=== PATIENT | female | born 1955 | race Caucasian/White ===

== ENCOUNTER → 2016-07-01 | Outpatient (CLI) | payer OTHER, MEDICAID | LOC: BHFA 13:30 | PROVIDERS: ATTEND Internal Medicine Cardiovascular Disease | DX: Z51.11 Encounter for antineoplastic chemotherapy (principal) ==

== ENCOUNTER 2016-07-25 15:16 | Inpatient (IN) | payer OTHER, MEDICAID ==
--- NOTE | 2016-07-25 16:00 | EDPHY ---
H & P Stated Complaint: Fever, ST, SOB, Cancer patient on chemo. Time Seen by Provider: 07/25/16 15:44 HPI/ROS: CHIEF COMPLAINT: Fever, cough, laryngitis in a patient with metastatic cancer HISTORY OF PRESENT ILLNESS: Patient presents to the ED with 2 days of fever, cough, sore throat and laryngitis. The patient has a history of metastatic breast cancer. The patient had chemotherapy within the past week. She has been around a grandchild who is sick with an upper respiratory infection. Patient developed symptoms of fever over the past 24 hours. She denies vomiting or diarrhea. She has no complaints of abdominal pain or rash. The patient does report flu-like symptoms with myalgias and arthralgias. REVIEW OF SYSTEMS: A comprehensive 10 point review of systems is otherwise negative aside from elements mentioned in the history of present illness. Source: Patient Exam Limitations: No limitations - Personal History Current Tetanus/Diphtheria Vaccine: Unsure Current Tetanus Diphtheria and Acellular Pertussis (TDAP): Unsure - Medical/Surgical History Hx Asthma: No Hx Chronic Respiratory Disease: No Hx Diabetes: No Hx Cardiac Disease: No Hx Renal Disease: No Hx Cirrhosis: No Hx Alcoholism: No Hx HIV/AIDS: No Hx Splenectomy or Spleen Trauma: No Other PMH: breast ca metastsis chest and throat, rectal ca, graves disease, QUINTIN , on chemo - Social History Smoking Status: Former smoker - Physical Exam Exam: General Appearance: Alert, no distress Eyes: Pupils equal and round no pallor or injection ENT, Mouth: Mucous membranes moist Respiratory: There are no retractions, lungs are clear to auscultation Cardiovascular: Tachycardic, no rubs murmurs or gallops Gastrointestinal: Abdomen is soft and nontender, no masses, bowel sounds normal Neurological: A&O, normal motor function, normal sensory exam, normal cranial nerves Skin: Port on anterior chest wall without surrounding erythema Musculoskeletal: Neck is supple nontender Extremities: symmetrical, full range of motion Constitutional: Initial Vital Signs Temperature (C) 39.2 C H 07/25/16 15:24 Heart Rate 141 H 07/25/16 15:24 Respiratory Rate 20 07/25/16 15:24 Blood Pressure 118/86 H 07/25/16 15:24 O2 Sat (%) 83 L 07/25/16 15:24 O2 Delivery Mode Room Air O2 (L/minute) 3 Allergies/Adverse Reactions: adhesive Allergy (Verified 07/25/16 15:32) tomato Allergy (Verified 07/25/16 15:32) Home Medications: Medication Instructions Recorded Dexamethasone [Decadron 4 MG (*)] 8 mg PO BID 04/07/16 FLUoxetine [Prozac 20 MG (*)] 40 mg PO DAILY 04/07/16 Fluticasone Nasal [Flonase Nasal 1 sprays NASAL BID 04/07/16 [place] (RX)] Herbals/Supplements -Info Only 1 ea PO DAILY 04/07/16 Hydrocodone/Acetaminophen [[place] 1 each PO Q4HRS PRN 04/07/16 5/325 (*)] LORazepam [Ativan (*)] 0.5 - 1 mg PO HS PRN 04/07/16 Multivitamin with Minerals 1 each PO DAILY 04/07/16 [Multiple Vitamin] Potassium Cl [Klor-Con 20 meq (*)] 20 meq PO DAILY 04/07/16 Pravastatin Sodium 10 mg PO HS 04/07/16 Albuterol [Proventil Inhaler HFA 2 puffs IH Q6HRS PRN 07/25/16 (*)] Docusate Sodium [Colace 100 MG (*)] 100 mg PO BID PRN 07/25/16 Levothyroxine [Synthroid 112 mcg 112 mcg PO DAILY06 07/25/16 (*)] Montelukast Sodium [Singulair 10 10 mg PO DAILY@1800 07/25/16 mg (*)] Prochlorperazine Maleate 10 mg PO Q6HRS PRN 07/25/16 [Compazine 10mg (*)] Propranolol HCl [Inderal 10mg (*)] 5 mg PO DAILY 07/25/16 Sennosides/Docusate Sodium 1 each PO DAILY 07/25/16 [Senna-S Tablet] Tiotropium Inhaler [Spiriva 1 inh IH DAILY 07/25/16 Inhaler] Urea 40% [Urea Cream (*)] 1 amla TP DAILY 07/25/16 traMADol [Ultram 50 mg (*)] 100 mg PO Q4HRS 07/25/16 Medical Decision Making - Diagnostics Imaging: Imaging Impressions Chest X-Ray 07/25/16 15:54 Impression: Bilateral infiltrates, and small bilateral pleural effusions. Images reviewed by myself and discussed with radiologist Dr. Garcia. ED Course/Re-evaluation: The patient presents to emergency department with neutropenia, SIRS and pneumonia. The patient does not have evidence of end-organ dysfunction. The patient's initial lactate is reassuring. The patient had blood cultures x2 in the ED. The patient will be started on vancomycin and cefepime. Re-examination at 5:00 p.m.: Blood pressure 111/70, no acute distress. Patient informed of diagnosis of pneumonia plan for admission for IV antibiotics. Consultation is made with Dr. Sincere Hall from the hospitalist service. The patient will be admitted to a medical-surgical bed this evening. The patient does not currently have severe sepsis but has received blood cultures x2, broad-spectrum antibiotics and a venous lactate screening. She has no hypotension requiring fluid bolus. The patient did received 2 L of normal saline for clinical dehydration. Differential Diagnosis: Differential diagnosis considered includes neutropenic fever, pneumonia, sepsis , severe sepsis, septic shock - Data Points Laboratory Results: Laboratory Results 07/25/16 16:05 07/25/16 16:05 07/25/16 07/25/16 07/25/16 16:30 16:05 16:05 WBC 1.12 10^3/uL L 10^3/uL (3.80-9.50) RBC 3.74 10^6/uL L 10^6/uL (4.18-5.33) Hgb 11.2 g/dL L g/dL (12.6-16.3) Hct 32.9 % L % (38.0-47.0) MCV 88.0 fL fL (81.5-99.8) MCH 29.9 pg pg (27.9-34.1) MCHC 34.0 g/dL g/dL (32.4-36.7) RDW 17.3 % H % (11.5-15.2) Plt Count 343 10^3/uL 10^3/uL (150-400) MPV 9.4 fL fL (8.7-11.7) Neut % (Auto) Not Reported Lymph % (Auto) Not Reported [place] % (Auto) Not Reported Eos % (Auto) Not Reported Baso % (Auto) Not Reported Nucleat RBC Rel Count 0.0 % % (0.0-0.2) Absolute Neuts (auto) Not Reported Absolute Lymphs (auto) Not Reported Absolute Monos (auto) Not Reported Absolute Eos (auto) Not Reported Absolute Basos (auto) Not Reported Absolute Nucleated RBC 0.00 10^3/uL 10^3/uL (0-0.01) Immature Gran % Not Reported Immature Gran # Not Reported Platelet Estimate Pending VBG Lactic Acid Sodium 130 mEq/L L mEq/L (134-144) Potassium 3.8 mEq/L mEq/L (3.5-5.2) Chloride 97 mEq/L mEq/L (97-110) Carbon Dioxide 25 mEq/l mEq/l (22-31) Anion Gap 8 mEq/L mEq/L (8-16) BUN 5 mg/dL L mg/dL (7-23) Creatinine 0.5 mg/dL L mg/dL (0.6-1.0) Estimated GFR > 60 Glucose 106 mg/dL H mg/dL (70-100) Calcium 8.4 mg/dL L mg/dL (8.5-10.4) Influenza A & B (PCR) Pending 07/25/16 16:05 WBC RBC Hgb Hct MCV MCH MCHC RDW Plt Count MPV Neut % (Auto) Lymph % (Auto) [place] % (Auto) Eos % (Auto) Baso % (Auto) Nucleat RBC Rel Count Absolute Neuts (auto) Absolute Lymphs (auto) Absolute Monos (auto) Absolute Eos (auto) Absolute Basos (auto) Absolute Nucleated RBC Immature Gran % Immature Gran # Platelet Estimate VBG Lactic Acid 1.2 mmol/L mmol/L (0.7-2.1) Sodium Potassium Chloride Carbon Dioxide Anion Gap BUN Creatinine Estimated GFR Glucose Calcium Influenza A & B (PCR) Departure - Departure Disposition: [facility] Inpatient Acute Clinical Impression: Neutropenic fever, Pneumonia, Sepsis Condition: Fair
[2016-07-25 16:18] LABS: ADD MORPH? NO; FRAGMENT RBC FLAG 20 (0-99); HEMATOCRIT 32.9 % (38.0-47.0); HEMOGLOBIN 11.2 g/dL (12.6-16.3); LIPEMIA HEMOLYSIS FLAG 90 (0-99); MEAN CELL HEMOGLOBIN 29.9 pg (27.9-34.1); MEAN PLATELET VOLUME 9.4 fL (8.7-11.7); PLATELET CLUMPS FLAG 0 (0-99); PLATELET COUNT 343 10^3/uL (150-400); RED BLOOD CELL COUNT 3.74 10^6/uL (4.18-5.33); RED CELL DISTRIBUTION WIDTH 17.3 % (11.5-15.2)
[2016-07-25] MEDS ORDERED: NS 1,000 ML IV ONE ×3 (16:33→19:57)
[2016-07-25 16:36] LABS: ANION GAP 8 mEq/L (8-16); CALCIUM 8.4 mg/dL (8.5-10.4); CARBON DIOXIDE 25 mEq/l (22-31); CHLORIDE 97 mEq/L (97-110); CREATININE 0.5 mg/dL (0.6-1.0); GLOMERULAR FILTRATION RATE > 60; GLUCOSE 106 mg/dL (70-100); POTASSIUM 3.8 mEq/L (3.5-5.2); SODIUM 130 mEq/L (134-144)
[2016-07-25 16:44] LABS: ATYPICAL LYMPHOCYTE FLAG 100 (0-99); LEFT SHIFT FLG 120 (0-99)
[2016-07-25 16:45] LABS: ADD DIFF? YES; ADD SCAN? NO
[2016-07-25] MEDS ORDERED: CEFEPIME HCL 2 GM in D5W 100 ML IV ONE (16:49)
[2016-07-25] MEDS ORDERED: VANCOMYCIN HCL/NORMAL SALINE 250 ML IV ONE (16:50)
[2016-07-25] MEDS ORDERED: VANCOMYCIN 1 GM/NS 250 ML BAG IV ONE ×2 (17:33→17:35)
[2016-07-25 17:46] LABS: GIANT PLATELETS PRESENT; HYPOCHROMIA 1+; MACROCYTES 1+; MICROCYTES 1+; PLATELET ESTIMATE ADEQUATE (ADEQ)
[2016-07-25] MEDS ORDERED: ALBUTEROL 3 ML DEYVIAL ONE (19:15)
[2016-07-25] MEDS ORDERED: IPRATROPIUM/ALBUTEROL 3 ML DEYVIAL ONE (19:15)
[2016-07-25] MEDS ORDERED: ONDANSETRON 4 MG/2 ML VIAL IVP PRN (19:57)
[2016-07-25] MEDS ORDERED: ALBUTEROL 3 ML DEYVIAL IH PRN (19:57)
[2016-07-25] MEDS ORDERED: ACETAMINOPHEN 325 MG TAB PO PRN (19:57)
[2016-07-25] MEDS ORDERED: PROCHLORPERAZINE MALEATE 10 MG TAB PO PRN (20:00)
[2016-07-25] MEDS ORDERED: DOCUSATE SODIUM 100 MG CAP PO PRN (20:00)
[2016-07-25] MEDS: DEXAMETHASONE 4 MG TAB PO SCH (20:29)
[2016-07-25] MEDS: HYDROCODONE/APAP 5/325 TAB PO PRN (20:31)
[2016-07-25] MEDS: LORazepam 0.5 MG TAB PO PRN (20:32)
[2016-07-25] MEDS: FLUTICASONE NASAL 120 SPRAYS/16 GM MDI EACHNARE SCH (21:04)
[2016-07-25] MEDS: CEFEPIME HCL 1 GM in D5W 50 ML IV SCH (21:07)
--- NOTE | 2016-07-25 21:09 | PDGENHP ---
History and Physical History and Physical: HISTORY AND PHYSICAL CC: Weak cough fever short of breath HISTORY: This patient with known metastatic breast cancer on chemotherapy comes in with gradually worsening respiratory symptoms for a week now with fever and weakness. She has been coughing and short of breath no chest pain. The cough is nonproductive. She has had rigors and sweats at home. Her last chemotherapy dose was 5 days ago for her breast cancer. She has no nausea or vomiting but has very poor appetite. There is no abdominal pain no headache no neck stiffness or neurologic symptoms. She does have a former smoking history and some history of COPD. 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 Quit smoking some years back Does desire no cor Dr. Manish Lantigua is her medical oncologist MEDICATIONS: The patients list has been reconciled by our clinical pharmacist in the EMR. I have reviewed the list and ordered appropriate medicines. PHYSICAL EXAMINATION: Vital Signs: Some tachycardia and tachypnea, temperature 38.1degrees, blood pressure is good Regional Engineer: Sinus rhythm in the ER Examination: General: alert, oriented, good mentation, looks very exhausted mildly uncomfortable Skin: warm, dry, good color, no rash HEENT: normal Neck: no mass or jvd Resps: Mildly labored Lungs: Some minor rales at bases with overall decreased breath sounds Heart: regular, no murmur Abdomen: soft, nondistended, nontender, +BS, no mass; colostomy in good condition left lower quadrant with appliances appropriately attached Upper Extremities: normal Lower Extremities: no edema, warm No Bleeding or bruising Neurologic: normal speech/language, 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, no focal weakness IV site: looks normal LABORATORY DATA: Total white blood cell count 1.4 with neutrophils less than 500 otherwise stable laboratory RADIOLOGY STUDIES: Chest x-ray in the ER, my personal review of images and interpretation: Bilateral pulmonary infiltrates most prominent in right upper lobe ASSESSMENT: -acute neutropenic fever -acute respiratory failure -Community-acquired pneumonia in an immunocompromised host -neutropenia from recent chemotherapy -metastatic breast cancer with recurrence -history of rectal carcinoma with ostomy in place left lower quadrant of abdomen PLANS: -inpatient admission to oncology unit with severe acute illness requiring greater than 48 hours inpatient care -cultures drawn in the ER and antibiotics started with appropriate coverage for her neutropenic fever and pneumonia -continue aggressive hydration -bronchodilators steroids if necessary -DVT prophylaxis -Oncology consultation I have reviewed the patient's case in detail with Dr. Miguelito Nuñez I have reviewed the patient's past medical records as part of this assessment, including clinic records
[2016-07-25] MEDS: NS 1,000 ML IV SCH (22:06)
[2016-07-25] MEDS: traMADol 50 MG TAB PO SCH (22:06)
[2016-07-25] MEDS: IPRATROPIUM/ALBUTEROL 3 ML DEYVIAL IH SCH (22:09)
[2016-07-25] MEDS: ZOLPIDEM TARTRATE 5 MG TAB PO PRN (23:14)
[2016-07-25] MEDS: PRAVASTATIN SODIUM 10 MG TAB PO SCH (23:14)
[2016-07-26] MEDS: traMADol 50 MG TAB PO SCH ×6 (01:48→22:46)
[2016-07-26] MEDS: CEFEPIME HCL 1 GM in D5W 50 ML IV SCH (04:40)
[2016-07-26] MEDS: NS 1,000 ML IV SCH ×2 (04:42→13:39)
[2016-07-26] MEDS: IPRATROPIUM/ALBUTEROL 3 ML DEYVIAL IH SCH ×4 (05:59→20:16)
[2016-07-26] MEDS: LEVOTHYROXINE 112 MCG TAB PO SCH (06:07)
[2016-07-26] MEDS: VANCOMYCIN HCL/NORMAL SALINE 250 ML IV SCH ×2 (06:07→18:18)
[2016-07-26 06:21] LABS: ADD DIFF? YES; ADD MORPH? NO; ATYPICAL LYMPHOCYTE FLAG 0 (0-99); FRAGMENT RBC FLAG 20 (0-99); HEMOGLOBIN 12.4 g/dL (12.6-16.3); LIPEMIA HEMOLYSIS FLAG 80 (0-99); MEAN CELL HEMOGLOBIN 29.2 pg (27.9-34.1); MEAN CELL HEMOGLOBIN CONCENTR. 33.5 g/dL (32.4-36.7); MEAN CELL VOLUME 87.1 fL (81.5-99.8); MEAN PLATELET VOLUME 9.2 fL (8.7-11.7); PLATELET CLUMPS FLAG 0 (0-99); PLATELET COUNT 270 10^3/uL (150-400); RED BLOOD CELL COUNT 4.25 10^6/uL (4.18-5.33); RED CELL DISTRIBUTION WIDTH 17.4 % (11.5-15.2)
[2016-07-26 06:22] LABS: LEFT SHIFT FLG 260 (0-99)
[2016-07-26 06:23] LABS: ADD SCAN? NO
[2016-07-26 06:49] LABS: PLATELET ESTIMATE ADEQUATE (ADEQ)
[2016-07-26 06:50] LABS: HYPOCHROMIA 1+; POLYCHROMASIA 1+
[2016-07-26 06:53] LABS: ALANINE AMINOTRANSFERASE 30 IU/L (9-52); ALBUMIN 2.2 g/dL (3.5-5.0); ALKALINE PHOSPHATASE 47 IU/L (38-126); ANION GAP 8 mEq/L (8-16); ASPARTATE AMINOTRANSFERASE 18 IU/L (14-46); BILIRUBIN,TOTAL 0.5 mg/dL (0.1-1.4); CARBON DIOXIDE 22 mEq/l (22-31); CHLORIDE 105 mEq/L (97-110); CREATININE 0.5 mg/dL (0.6-1.0); GLOMERULAR FILTRATION RATE > 60; GLUCOSE 131 mg/dL (70-100); POTASSIUM 3.7 mEq/L (3.5-5.2); SODIUM 135 mEq/L (134-144); TOTAL PROTEIN 4.4 g/dL (6.3-8.2)
[2016-07-26] MEDS ORDERED: NON-FORMULARY NEW DRUG (Multivitamin With Minerals [Multiple Vitamin] 1 EACH) PO SCH (09:00)
[2016-07-26] MEDS: MULTIVITAMINS W-MINERALS 1 EACH TAB PO SCH (09:09)
[2016-07-26] MEDS: POTASSIUM CL 20 MEQ TAB PO SCH (09:09)
[2016-07-26] MEDS: ENOXAPARIN 40 MG/0.4 ML SYR SC SCH (09:10)
[2016-07-26] MEDS: DEXAMETHASONE 4 MG TAB PO SCH ×2 (09:10→20:56)
[2016-07-26] MEDS: FLUoxetine 20 MG CAP PO SCH (09:10)
[2016-07-26] MEDS: FLUTICASONE NASAL 120 SPRAYS/16 GM MDI EACHNARE SCH ×2 (09:16→20:55)
[2016-07-26] MEDS: PROPRANOLOL HCL 10 MG TAB PO SCH (09:16)
[2016-07-26] MEDS: SENNOSIDES/DOCUSATE SODIUM TAB PO SCH (09:17)
[2016-07-26] MEDS ORDERED: FUROSEMIDE 20 MG/2 ML VIAL IVP ONE (13:46)
[2016-07-26] MEDS: UREA 40% CREAM TP SCH (13:50)
--- NOTE | 2016-07-26 14:28 | HOSPPROG ---
Hospitalist Progress Note Assessment/Plan: # Sepsis- neutropenia and tachycardia on presentation source presumed pulmonary- chest x-ray (personally reviewed and interpreted) a new right-sided infiltrate- - received aggressive fluid resuscitation overnight - continue empiric IV vancomycin and cefepime # acute hypoxic respiratory failure- oxygen saturations 94% on 12 L- saturations have worsened through the afternoon increased crackles and wheezing on examination- suspect 2/2 pneumonia plus some volume overload with her treatment of sepsis - . IVF as patient taking p.o. - Lasix 20 mg IV x1 - continue empiric IV antibiotics for neutropenic pneumonia # acute Gram-negative garo bacteremia- 1 of 4 blood cultures from admission positive- awaiting speciation - continue IV cefepime # neutropenia secondary to chemotherapy- WBC 1.2 - continue aggressive supportive treatment - continue IV vancomycin and cefepime # metastatic breast cancer- oncology consulting and following along # tachycardia- secondary to sepsis and hypovolemia- heart rates improved this afternoon in the 90s from the 130s - holding additional fluids as above and monitor # hypovolemic hyponatremia- sodium normal this morning after fluid resuscitation - follow daily # prophylaxis Lovenox # diet regular # disposition I expect greater than 2 midnights as the patient is presenting neutropenic with sepsis and bacteremia I have discussed the case with Oncology- we will continue broad-spectrum antibiotics and give low-dose Lasix for hypoxia Subjective: short of breath Objective: Vital Signs Temp Pulse Resp BP Pulse Ox 36.8 C 97 18 115/79 90 L 07/26/16 13:11 07/26/16 13:11 07/26/16 13:11 07/26/16 13:11 07/26/16 13:11 Laboratory Results 07/26/16 06:15 07/26/16 06:15 07/25/16 07/26/16 07/27/16 05:59 05:59 05:59 Intake Total 1000 1268 Output Total 20 Balance 980 1268 - Physical Exam Constitutional: chronically ill appearing Eyes: anicteric sclera Ears, Nose, Mouth, Throat: dry mucous membranes Cardiovascular: regular rate and rhythym, tachycardia Respiratory: inspiratory crackles, respiratory distress Gastrointestinal: normoactive bowel sounds Genitourinary: no bladder fullness Skin: warm, normal color Musculoskeletal: No asymmetric calves Neurologic: AAOx3 Psychiatric: depressed Lymph, Heme, Immunologic: no cervical LAD ICD10 Worksheet Patient Problems: Problems Problem Status Onset Neutropenic fever Acute Pneumonia Acute Sepsis Acute
--- NOTE | 2016-07-26 15:04 | GCON ---
[f rep st] CONSULTATION ONCOLOGY INITIAL VISIT REASON FOR VISIT: Metastatic breast cancer. PRIMARY ONCOLOGIST: Dr. Lantigua. HISTORY OF PRESENT ILLNESS: She was initially diagnosed in 1993 with a T2 N0 breast cancer. She de veloped metastatic disease, I believe, in 2010. She was initially treated with hormone therapy, inc luding fulvestrant through early 2014. In fall 2015, she was felt to be hormone refractory and star genesis on capecitabine, She received it but did not tolerate it, so she was switched to docetaxel. She has been on that since March 07 and last week was cycle 5, day 15, for which she is receiving it weekly. I do not believe she has had significant problems related to the chemotherapy. She came in, I believe, through the emergency room with worsening respiratory symptoms for a week wi th associated fever and weakness. Her blood pressure is low and she was a little tachycardic last n ight. She was also found to be neutropenic. She was started on broad-spectrum antibiotics and aggr essively hydrated. Today, she is feeling maybe about the same although the fever has defervesced. She is a little more short of breath and hypoxic. She is hard of hearing and has a soft voice. PAST MEDICAL HISTORY: She has the breast cancer diagnosed 2002. She has a previous rectal cancer t reated with colectomy with a colostomy in place, COPD, Graves disease. SURGICAL HISTORY: Aside from the partial colectomy, she has had a hysterectomy. FAMILY HISTORY: Unremarkable. SOCIAL HISTORY: She is a former smoker, 22-pack year. She is . She lives, I believe, in [facility], and her daughter lives in [place]. REVIEW OF SYSTEMS: Ten-point review of systems performed, pertinent positives in HPI, otherwise neg ative. PHYSICAL EXAMINATION: VITAL SIGNS: On arrival, temperature is 39.2, pulse was 141, blood pressure is 118/86. Currently, her temperature is 36.8, pulse is 97, blood pressure is 115/79. GENERAL: Enedina velasquez is ill appearing but in no distress asking to get catsup for her breakfast. She is mildly tachypn eic. LUNGS: Reveal bilateral rhonchi with some wheezing. CARDIAC: Regular. ABDOMEN: Soft. SKI N: Reveals no rash. NEUROLOGIC: Grossly intact. LABS: On arrival, white count was 1100 with an ANC of about 600. Her ANC today is 750. Hemoglobin is 12.4, platelet count is normal. Chemistries: Albumin is little low at 2.2 but otherwise unrema rkable. She is negative for flu and microbiology is showing gram-negative garo. Chest x-ray last ni ght showed some bilateral infiltrates. IMPRESSION: 1. Febrile neutropenia. 2. Pneumonitis. 3. Metastatic breast cancer. Her last staging studies were about 2 months ago that showed improvem ent osseous metastasis and adenopathy. Her chest at that time, I believe, was relatively unremarkab le. I agree with starting with broad spectrum antibiotics which can be narrowed as the culture returns. If she does not grow Staph then vancomycin would not be necessary to continue on. If she continues to have some pulmonary issues with the changes on chest x-ray, we could get a CT to determine if th is is infectious versus other which could be difficult to tease out. Taxotere has been associated w ith pneumonitis, and if she is not getting better as expected, we could add steroids. We will follo w along with you. I do not recommend starting any growth factor at this time since she seems to be recovering. /[id number]/MODL
[2016-07-26] MEDS: CEFEPIME HCL 2 GM in D5W 100 ML IV SCH ×2 (15:25→22:38)
[2016-07-26] MEDS: MONTELUKAST SODIUM 10 MG TAB PO SCH (18:01)
[2016-07-26] MEDS: PRAVASTATIN SODIUM 10 MG TAB PO SCH (20:56)
[2016-07-27] MEDS ORDERED: FUROSEMIDE 20 MG/2 ML VIAL IVP ONE ×2 (00:12→06:00)
--- NOTE | 2016-07-27 00:15 | HOSPPROG ---
Hospitalist Progress Note Assessment/Plan: x-cover note I was notified by RN of increasing o2 requirement. stat xray ordered and reviewed showing worsening pneumonia with superimposed chf p/ will repeat lasix 20mg iv x1 and consider a repeat dose as indicated Objective: Vital Signs Temp Pulse Resp BP Pulse Ox 36.6 C 107 H 20 120/80 94 07/26/16 22:44 07/26/16 22:44 07/26/16 22:44 07/26/16 22:44 07/26/16 22:44 Laboratory Results 07/26/16 06:15 07/26/16 06:15 07/25/16 07/26/16 07/27/16 05:59 05:59 05:59 Intake Total 1000 1668 Output Total 20 1300 Balance 980 368 ICD10 Worksheet Patient Problems: Problems Problem Status Onset Neutropenic fever Acute Pneumonia Acute Sepsis Acute
[2016-07-27] MEDS: traMADol 50 MG TAB PO SCH ×6 (02:37→20:54)
[2016-07-27 05:14] LABS: ADD MORPH? NO; FRAGMENT RBC FLAG 20 (0-99); HEMATOCRIT 33.7 % (38.0-47.0); HEMOGLOBIN 11.4 g/dL (12.6-16.3); LIPEMIA HEMOLYSIS FLAG 90 (0-99); MEAN CELL HEMOGLOBIN 29.5 pg (27.9-34.1); MEAN CELL HEMOGLOBIN CONCENTR. 33.8 g/dL (32.4-36.7); MEAN CELL VOLUME 87.3 fL (81.5-99.8); MEAN PLATELET VOLUME 9.7 fL (8.7-11.7); PLATELET CLUMPS FLAG 0 (0-99); PLATELET COUNT 357 10^3/uL (150-400); RED BLOOD CELL COUNT 3.86 10^6/uL (4.18-5.33); RED CELL DISTRIBUTION WIDTH 17.2 % (11.5-15.2)
[2016-07-27 05:22] LABS: ATYPICAL LYMPHOCYTE FLAG 140 (0-99); LEFT SHIFT FLG 300 (0-99)
[2016-07-27 05:23] LABS: ADD DIFF? YES; ADD SCAN? NO
[2016-07-27] MEDS: IPRATROPIUM/ALBUTEROL 3 ML DEYVIAL IH SCH ×4 (05:24→21:10)
[2016-07-27] MEDS: CEFEPIME HCL 2 GM in D5W 100 ML IV SCH ×3 (05:53→20:55)
[2016-07-27] MEDS: LEVOTHYROXINE 112 MCG TAB PO SCH (05:53)
[2016-07-27 06:10] LABS: PLATELET ESTIMATE ADEQUATE (ADEQ); TOXIC GRANULATION PRESENT; TOXIC VACUOLIZATION PRESENT
[2016-07-27] MEDS ORDERED: VANCOMYCIN 1.25 GM in D5W 250 ML IV SCH (07:00)
[2016-07-27] MEDS ORDERED: FUROSEMIDE 40 MG/4 ML VIAL IVP ONE ×2 (07:07→10:30)
[2016-07-27] MEDS: VANCOMYCIN HCL/NORMAL SALINE 250 ML IV SCH (07:28)
--- NOTE | 2016-07-27 09:10 | HOSPPROG ---
Hospitalist Progress Note Assessment/Plan: # Sepsis- neutropenia and tachycardia on presentation - with pneumonia and pseudomonas bacteremia chest x-ray 0020 (personally reviewed and interpreted) right-sided infiltrate-volume overload - received aggressive fluid resuscitation on admit - continue empiric IV vancomycin and cefepime - (will discuss dc of vancomycin with ID) # acute hypoxic respiratory failure- oxygen saturations worsened overnight 94 % on 12 L-> 25L suspect worsening overnight 2/2 volume - - IVF dc's yesterday 1300 - repeat Lasix 20 mg IV x1 overnight - will give lasix 40mg this am - continue empiric IV antibiotics for neutropenic pneumonia # acute Pseudomonas bacteremia- 1 of 4 blood cultures from admission positive - - continue IV cefepime # neutropenia secondary to chemotherapy- WBC 1.2-> 3.07 - continue aggressive supportive treatment - continue IV abx # metastatic breast cancer- oncology consulting and following along # tachycardia- secondary to sepsis and AHRF- heart rates improved from admit - remain in 100's - holding additional fluids as above and monitor # hypovolemic hyponatremia- sodium normal 135 after fluid resuscitation - follow daily # prophylaxis Lovenox # diet regular # disposition I expect greater than 2 midnights as the patient is presenting neutropenic with sepsis and bacteremia I have discussed the case with ID - they will consult and help with tailoring of antibiotics Subjective: sob Objective: Vital Signs Temp Pulse Resp BP Pulse Ox 36.6 C 113 H 18 135/88 H 95 07/27/16 07:22 07/27/16 07:22 07/27/16 07:22 07/27/16 07:22 07/27/16 07:22 Laboratory Results 07/27/16 05:00 07/26/16 06:15 07/26/16 07/27/16 07/28/16 05:59 05:59 05:59 Intake Total 1000 2761 Output Total 20 1900 900 Balance 980 861 -900 - Physical Exam Constitutional: chronically ill appearing Eyes: anicteric sclera Ears, Nose, Mouth, Throat: dry mucous membranes Cardiovascular: regular rate and rhythym, tachycardia Respiratory: expiratory wheeze, inspiratory crackles, respiratory distress Gastrointestinal: normoactive bowel sounds Genitourinary: no bladder fullness Skin: warm, normal color Musculoskeletal: No asymmetric calves Neurologic: AAOx3 Psychiatric: depressed Lymph, Heme, Immunologic: no cervical LAD ICD10 Worksheet Patient Problems: Problems Problem Status Onset Neutropenic fever Acute Pneumonia Acute Sepsis Acute
[2016-07-27] MEDS: DEXAMETHASONE 4 MG TAB PO SCH ×2 (10:28→20:54)
[2016-07-27] MEDS: POTASSIUM CL 20 MEQ TAB PO SCH (10:29)
[2016-07-27] MEDS: MULTIVITAMINS W-MINERALS 1 EACH TAB PO SCH (10:30)
[2016-07-27] MEDS: FLUoxetine 20 MG CAP PO SCH (10:30)
[2016-07-27] MEDS: SENNOSIDES/DOCUSATE SODIUM TAB PO SCH (10:31)
[2016-07-27] MEDS: ENOXAPARIN 40 MG/0.4 ML SYR SC SCH (10:31)
[2016-07-27] MEDS: FLUTICASONE NASAL 120 SPRAYS/16 GM MDI EACHNARE SCH ×2 (10:32→21:30)
[2016-07-27] MEDS: PROPRANOLOL HCL 10 MG TAB PO SCH (10:34)
--- NOTE | 2016-07-27 11:11 | GCON ---
[f rep st] CONSULTATION INPATIENT INFECTIOUS DISEASE CONSULTATION REFERRING PHYSICIAN: Dana Carpenter REASON FOR REFERRAL: Neutropenic fever, Pseudomonas bacteremia. HISTORY OF PRESENT ILLNESS: Patient is a 60-year-old female who was admitted to [facility] through the emergency room on 07/25/2016. The patient has underlying late-stage breast cancer for over a decade. She is actively on chemotherapy. Her chemotherapy has resulted in neutropenia. Patient had been experiencing at home fevers and rigors with shortness of breath. She was admitte d and started empirically on vancomycin and cefepime. Blood cultures then grew gram negative rods, which PCR'd out as Pseudomonas aeruginosa. Currently, she is resting comfortably in her hospital ro . She is sitting up in a chair beside her bed. She is trying to have a little bit of breakfast. She states she feels better. She has not had a fever since her admission. She denies any shortnes s of breath. Denies any abdominal pain. PAST MEDICAL HISTORY: 1. Breast cancer stage IV. Diagnosed in 2002. She is currently receiving chemotherapy. Last cycl e 5 days prior to admission. 2. Rectal cancer status post partial colectomy. Currently has an ostomy. 3. COPD, former smoker. 4. Graves disease. PAST SURGICAL HISTORY: 1. Status post partial colectomy with colostomy placement. 2. Status post hysterectomy. ANTIBIOTICS: 1. Vancomycin. 2. Cefepime. ALLERGIES: Patient is allergic to adhesives and tomatoes. SOCIAL HISTORY: The patient lives in [place]. She has a supportive family. Her daughter is quit e involved. She has a past history of tobacco use. No significant alcohol or drug use. FAMILY HISTORY: Reviewed, but noncontributory. REVIEW OF SYSTEMS: Other than that detailed above in history of present illness, comprehensive 10-s ystem review is negative. PHYSICAL EXAMINATION: VITAL SIGNS: Temperature maximum is 37.1. Temperature current is 36.6. Hea rt rate is 113, respiratory rate is 18, blood pressure is 135/88. GENERAL: The patient is a well-f ormed, well-nourished, chronically ill-appearing older female in no acute distress. She is not toxi c in appearance. She is alert and oriented x3. She has a pleasant demeanor. HEENT: Normocephalic for age. Atraumatic. No scleral icterus. No oral lesion. No drainage from the nares. The patie nt does have alopecia secondary to chemotherapy. Eyes: Lids and conjunctivae are within normal sidhu its. Pupils are equal, round, bilaterally. NECK: Supple without meningismus. LUNGS: Clear to au scultation bilaterally with good effort. HEART: Regular rhythm, but tachycardic. No murmur, rub, or gallop appreciated. No significant peripheral edema. ABDOMEN: Soft, nontender, no masses. SKI N: Warm and dry to the touch. No rash or lesion noted. MUSCULOSKELETAL: No muscle tenderness is noted. No joint large effusion or arthritis is seen. NEURO: Cranial nerves 2-12 seem to be intact . Peripheral sensation seems intact in all extremities. LABORATORY DATA: The patient has a CBC dated 07/27/2016. It shows white blood cell count of 3.07, hemoglobin of 11.4, hematocrit of 33.7, and a platelet count of 357. Differential shows 25% mature segmented neutrophils and 35% band forms. Serum chemistries on 07/26/2016 are all within normal sidhu its. Creatinine 0.5. MICROBIOLOGIC DATA: Patient's blood cultures dated 07/25/2016. One out of two sets is growing a no n-lactose fermenting gram-negative garo which was positive on the PCR ray Pseudomonas aeruginosa. Se nsitivity and isolation is pending. ASSESSMENT: Neutropenic fever secondary to Pseudomonas bacteremia. Patient is no longer currently neutropenic given her total mature and immature segmented neutrophils. However, the patient will be treated for 2 weeks with covering antibiotic for her Pseudomonas. To that end, we will discontinue the vancomycin today, leaving her on cefepime monotherapy. We will continue to follow the sensitiv ity panels upcoming on the isolate. Will repeat blood cultures today to document clearance. PLAN: 1. Continue cefepime. 2. Discontinue vancomycin. 3. Repeat blood cultures. 4. Planned duration of 2 weeks from cleared cultures. /[id number]/MODL
[2016-07-27] MEDS: UREA 40% CREAM TP SCH (12:09)
[2016-07-27 12:54] LABS: ANION GAP 9 mEq/L (8-16); CALCIUM 8.2 mg/dL (8.5-10.4); CARBON DIOXIDE 24 mEq/l (22-31); CHLORIDE 100 mEq/L (97-110); CREATININE 0.5 mg/dL (0.6-1.0); GLOMERULAR FILTRATION RATE > 60; GLUCOSE 113 mg/dL (70-100); POTASSIUM 3.8 mEq/L (3.5-5.2); SODIUM 133 mEq/L (134-144)
[2016-07-27] MEDS ORDERED: FLUCONAZOLE 100 MG TAB PO ONE (14:30)
--- NOTE | 2016-07-27 14:36 | SOAPPROG ---
SOAP Progress Note Assessment/Plan: E&M for Breast Cancer * Febrile Neutropenia with pseudomonas bacteremia: fever has defervesced and ANC is improving. Appreciated ID input. Will add diflucan for thrush * Met. breast cancer: on weekly taxotere (day 15, cycle 5 was last week) * Respiratory failure with pneumonitis: oxygen needs are better and she is comfortable. Subjective: Feeling better but still with mouth and throat pain. Cannot swallow food very well and not much appetite. Objective: Vital Signs Temp Pulse Resp BP Pulse Ox 36.6 C 103 H 16 120/79 90 L 07/27/16 07:22 07/27/16 11:38 07/27/16 11:38 07/27/16 10:34 07/27/16 11:38 Laboratory Results 07/27/16 05:00 07/27/16 12:05 07/26/16 07/27/16 07/28/16 05:59 05:59 05:59 Intake Total 1000 2761 Output Total 20 1900 1800 Balance 980 861 -1800 Laboratory Tests 07/25/16 07/26/16 07/27/16 16:05 06:15 05:00 WBC 1.12 L 1.27 L 3.07 L Absolute Seg Neuts 0.46 L 0.50 L 0.77 L Absolute Band Neuts 0.19 0.25 1.07 H Physical Exam - Physical Exam General Appearance: no apparent distress EENT: No pharynx normal (thrush) Respiratory: lungs clear Cardiac/Chest: tachycardia Abdomen: non-tender, soft ICD10 Worksheet Patient Problems: Problems Problem Status Onset Neutropenic fever Acute Pneumonia Acute Sepsis Acute
[2016-07-27] MEDS: MONTELUKAST SODIUM 10 MG TAB PO SCH (17:27)
[2016-07-27] MEDS: PRAVASTATIN SODIUM 10 MG TAB PO SCH (20:55)
[2016-07-28] MEDS: traMADol 50 MG TAB PO SCH ×7 (00:42→21:55)
[2016-07-28] MEDS: LORazepam 0.5 MG TAB PO PRN ×2 (00:42→21:09)
[2016-07-28] MEDS: LEVOTHYROXINE 112 MCG TAB PO SCH (05:37)
[2016-07-28] MEDS: CEFEPIME HCL 2 GM in D5W 100 ML IV SCH ×3 (05:38→21:10)
[2016-07-28 05:44] LABS: ABSOLUTE NRBC COUNT 0.02 10^3/uL (0-0.01); ADD DIFF? YES; ADD MORPH? NO; FRAGMENT RBC FLAG 20 (0-99); HEMATOCRIT 31.6 % (38.0-47.0); HEMOGLOBIN 10.5 g/dL (12.6-16.3); LIPEMIA HEMOLYSIS FLAG 80 (0-99); MEAN CELL HEMOGLOBIN 29.1 pg (27.9-34.1); MEAN CELL HEMOGLOBIN CONCENTR. 33.2 g/dL (32.4-36.7); MEAN CELL VOLUME 87.5 fL (81.5-99.8); MEAN PLATELET VOLUME 9.6 fL (8.7-11.7); NRBC-AUTO% 0.3 % (0.0-0.2); PLATELET CLUMPS FLAG 0 (0-99); PLATELET COUNT 418 10^3/uL (150-400); RED BLOOD CELL COUNT 3.61 10^6/uL (4.18-5.33); RED CELL DISTRIBUTION WIDTH 17.4 % (11.5-15.2)
[2016-07-28 05:45] LABS: ATYPICAL LYMPHOCYTE FLAG 110 (0-99); LEFT SHIFT FLG 300 (0-99)
[2016-07-28 05:46] LABS: ADD SCAN? NO
[2016-07-28 06:05] LABS: ANION GAP 9 mEq/L (8-16); CALCIUM 8.1 mg/dL (8.5-10.4); CARBON DIOXIDE 25 mEq/l (22-31); CHLORIDE 102 mEq/L (97-110); CREATININE 0.5 mg/dL (0.6-1.0); GLOMERULAR FILTRATION RATE > 60; GLUCOSE 108 mg/dL (70-100); SODIUM 136 mEq/L (134-144)
[2016-07-28 06:19] LABS: HYPOCHROMIA 1+; PLATELET ESTIMATE INCREASED (ADEQ); TOXIC GRANULATION PRESENT; TOXIC VACUOLIZATION PRESENT
[2016-07-28] MEDS: IPRATROPIUM/ALBUTEROL 3 ML DEYVIAL IH SCH ×4 (06:25→21:35)
[2016-07-28] MEDS: ENOXAPARIN 40 MG/0.4 ML SYR SC SCH (10:32)
[2016-07-28] MEDS: SENNOSIDES/DOCUSATE SODIUM TAB PO SCH (10:32)
[2016-07-28] MEDS: FLUoxetine 20 MG CAP PO SCH (10:32)
[2016-07-28] MEDS: DEXAMETHASONE 4 MG TAB PO SCH ×2 (10:32→21:08)
[2016-07-28] MEDS: MULTIVITAMINS W-MINERALS 1 EACH TAB PO SCH (10:33)
[2016-07-28] MEDS: PROPRANOLOL HCL 10 MG TAB PO SCH (10:34)
[2016-07-28] MEDS: FLUCONAZOLE 100 MG TAB PO SCH (10:34)
[2016-07-28] MEDS: FLUTICASONE NASAL 120 SPRAYS/16 GM MDI EACHNARE SCH ×2 (10:35→21:10)
[2016-07-28] MEDS: POTASSIUM CL 20 MEQ TAB PO SCH (10:36)
[2016-07-28] MEDS: UREA 40% CREAM TP SCH (10:37)
--- NOTE | 2016-07-28 11:34 | HOSPPROG ---
Hospitalist Progress Note Assessment/Plan: DIAGNOSES: # Acute Sepsis with Pseudomonas bacteremia # acute hypoxic respiratory failure -still requiring vapotherm high flow O2, and still dyspneic at rest # acute Pseudomonas bacteremia -on IV cefepime since 07/26 # neutropenia secondary to chemotherapy -now with reasonable wbc recovery # metastatic breast cancer oncology consulting and following along # hypovolemic hyponatremia- sodium normal 135 after fluid resuscitation - follow daily # prophylaxis Lovenox # diet regular # disposition I expect greater than 2 midnights as the patient is presenting neutropenic with sepsis and bacteremia PLANS: -continue current cefepime regimen -will add Mucinex and continue flutter valve, bronchodilators, steroid -continue supportive oxygen delivery -ambulation as able -continue to follow white blood cell count closely -I have reviewed in detail with Dr Shields today, will review with Dr. Bryson as well SUBJECTIVE: Overall she says she feels somewhat better but remains very short of breath and with terrible coughing spells. No chest pain. She complains of pain at her ears from the oxygen tubing. Her mouth is fairly sore and she is unable to eat because of this as well. OBJECTIVE Vitals reviewed: Remains tachycardic and tachypneic on high-flow Vapotherm oxygen, blood pressure is good, no fever Dielectric Tester, my review: Exam: alert oriented looks a little bit more relaxed than when I saw her on July 25 skin warm dry pale, no rash or jaundice resps remain labored and tachypneic on high-flow O2 lungs very diminished BSs heart regular and rapid abd soft nondistended nontender, bowel sounds present limbs warm, no edema iv site ok Objective: Vital Signs Temp Pulse Resp BP Pulse Ox 36.6 C 114 H 18 100/62 90 L 07/28/16 08:25 07/28/16 10:40 07/28/16 10:40 07/28/16 10:34 07/28/16 10:40 Laboratory Results 07/28/16 05:36 07/28/16 05:36 07/27/16 07/28/16 07/29/16 06:59 06:59 06:59 Intake Total 1493 1590 Output Total 1900 3260 Balance -407 -1160 ICD10 Worksheet Patient Problems: Problems Problem Status Onset Neutropenic fever Acute Pneumonia Acute Sepsis Acute
--- NOTE | 2016-07-28 11:55 | PCMIDPN ---
Assessment/Plan: 1. Probable Pseudomonas pneumonia with secondary bacteremia in immunocompromised host: Suspect increasing oxygen requirement secondary to immune moravian with elevated white blood cell count and ability to mount an inflammatory response. Continue cefepime as is. Repeat blood cultures are pending. Patient has been dysphonic for the past 7 days-will obtain respiratory viral panel as well. 2. Oral thrush: I could not appreciate this on exam today but the patient has been started on fluconazole nonetheless by Oncology. 07/28/16 11:57 Subjective: Still very hoarse. Coughing up purulent sputum. Feels better though compared to yesterday. No diarrhea, nausea or vomiting. Denies any recent travel. Has no birds. Not exposed to saunas or hot tubs. Objective: Cefepime 2 g IV q.8 hours day 2. Fluconazole 100 mg daily day 1. T-max 36.6degrees 90% on high-flow oxygen Vital Signs Temp Pulse Resp BP Pulse Ox 36.6 C 114 H 18 100/62 90 L 07/28/16 08:25 07/28/16 10:40 07/28/16 10:40 07/28/16 10:34 07/28/16 10:40 Laboratory Results 07/28/16 05:36 07/28/16 05:36 07/27/16 07/28/16 07/29/16 05:59 05:59 05:59 Intake Total 2761 1590 Output Total 1900 2300 450 Balance 861 -693 -450 July 25 blood cultures x2 1/4 bottles with Pseudomonas aeruginosa susceptible to cefepime and quinolones Blood cultures x2 July 27 are pending - Physical Exam General Appearance: other (Appears older than stated age. Very hoarse. Nontoxic.) EENT: pharynx normal Respiratory: crackles (Right lung base. Fairly clear left lung field) Cardiac/Chest: other (Port left chest looks fine with no tenderness or erythema) Abdomen: non-tender, soft Skin: No rash ICD10 Worksheet Patient Problems: Problems Problem Status Onset Neutropenic fever Acute Pneumonia Acute Sepsis Acute
[2016-07-28] MEDS: guaiFENesin 600 MG TAB.ER PO SCH ×2 (13:39→21:08)
--- NOTE | 2016-07-28 15:17 | SOAPPROG ---
SOAP Progress Note Assessment/Plan: E&M for Breast Cancer * Febrile Neutropenia with pseudomonas bacteremia: fever has defervesced and ANC has recovered. Appreciated ID input. Thrush has resolved * Met. breast cancer: on weekly taxotere (day 15, cycle 5 was last week) * Respiratory failure with pneumonitis: still a problem; needing a lot of oxygen but clinically she is stable. Subjective: Feeling better although still with dyspnea. Mouth and throat much better. Objective: Vital Signs Temp Pulse Resp BP Pulse Ox 36.7 C 96 18 128/73 H 100 07/28/16 13:45 07/28/16 13:45 07/28/16 13:45 07/28/16 13:45 07/28/16 13:45 Laboratory Results 07/28/16 05:36 07/28/16 05:36 07/27/16 07/28/16 07/29/16 05:59 05:59 05:59 Intake Total 2761 1590 Output Total 1900 2300 450 Balance 861 -200 -116 Physical Exam - Physical Exam General Appearance: no apparent distress EENT: pharynx normal (thrush resolved) Respiratory: rhonchi, wheezing Cardiac/Chest: tachycardia ICD10 Worksheet Patient Problems: Problems Problem Status Onset Neutropenic fever Acute Pneumonia Acute Sepsis Acute
[2016-07-28] MEDS: MONTELUKAST SODIUM 10 MG TAB PO SCH (17:58)
[2016-07-28] MEDS: PRAVASTATIN SODIUM 10 MG TAB PO SCH (21:09)
[2016-07-29] MEDS: traMADol 50 MG TAB PO SCH ×3 (05:16→13:50)
[2016-07-29] MEDS: IPRATROPIUM/ALBUTEROL 3 ML DEYVIAL IH SCH ×4 (05:45→22:20)
[2016-07-29] MEDS: CEFEPIME HCL 2 GM in D5W 100 ML IV SCH ×3 (05:49→23:14)
[2016-07-29] MEDS: LEVOTHYROXINE 112 MCG TAB PO SCH (05:49)
[2016-07-29] MEDS: ENOXAPARIN 40 MG/0.4 ML SYR SC SCH (08:37)
[2016-07-29] MEDS: FLUCONAZOLE 100 MG TAB PO SCH (08:38)
[2016-07-29] MEDS: MULTIVITAMINS W-MINERALS 1 EACH TAB PO SCH (08:38)
[2016-07-29] MEDS: guaiFENesin 600 MG TAB.ER PO SCH ×2 (08:38→20:33)
[2016-07-29] MEDS: PROPRANOLOL HCL 10 MG TAB PO SCH (08:38)
[2016-07-29] MEDS: FLUTICASONE NASAL 120 SPRAYS/16 GM MDI EACHNARE SCH ×2 (08:38→20:39)
[2016-07-29] MEDS: FLUoxetine 20 MG CAP PO SCH (08:38)
[2016-07-29] MEDS: SENNOSIDES/DOCUSATE SODIUM TAB PO SCH (08:38)
[2016-07-29] MEDS: POTASSIUM CL 20 MEQ TAB PO SCH (08:39)
[2016-07-29] MEDS: DEXAMETHASONE 4 MG TAB PO SCH ×2 (08:39→20:33)
[2016-07-29] MEDS: UREA 40% CREAM TP SCH (08:39)
--- NOTE | 2016-07-29 11:52 | PCMIDPN ---
Assessment/Plan: 1. Probable Pseudomonas pneumonia with secondary bacteremia in immunocompromised host: She is no longer neutropenic. As outlined yesterday, suspect increasing oxygen requirement secondary to immune advent with elevated white blood cell count and ability to mount an inflammatory response coupled with contribution from viral infection (see 2.) Continue cefepime as is. Repeat blood cultures remain sterile. Suspect she can be transitioned to an oral quinolone upon discharge given susceptibility profile of her Pseudomonas.NB: It is not documented in [facility] from where the positive blood cultures were drawn. ( Initial cultures were drawn in the emergency department) The patient states that a set was drawn from the port and the set from her arm. Because the port itself looks okay, and we have another source of infection (pneumonia) I am not anxious to remove her port at this point in time. She also cleared blood cultures very quickly. That being said, we need to keep all of this in mind moving forward. 2. Human metapneumovirus upper versus lower respiratory infection: Continue droplet isolation precautions for the duration of her hospital stay. This is likely the cause of her significant dysphonia. 2. Oral thrush: On fluconazole. Subjective: Respiratory panel was positive for human metapneumovirus. Patient feels slightly better today, but remains on high-flow oxygen. Continues to have a productive cough. Objective: Cefepime 2 g IV q.8 hours day 3 Fluconazole 100 mg IV daily day 2 Afebrile 92% on 35% oxygen by high-flow Vital Signs Temp Pulse Resp BP Pulse Ox 36.6 C 99 18 116/77 92 07/29/16 07:56 07/29/16 11:07 07/29/16 11:07 07/29/16 08:38 07/29/16 11:07 Laboratory Results 07/28/16 05:36 07/28/16 05:36 07/28/16 07/29/16 07/30/16 05:59 05:59 05:59 Intake Total 1590 500 Output Total 2300 1350 200 Balance -710 -850 -200 Blood cultures July 27 no growth Blood cultures July 2504/20 bottles with Pseudomonas aeruginosa susceptible to the quinolones - Physical Exam General Appearance: alert, no apparent distress EENT: No thrush Respiratory: crackles (At bases) Cardiac/Chest: other (Port left chest looks fine) Abdomen: non-tender, soft, other (Ostomy bag is empty) Skin: No rash ICD10 Worksheet Patient Problems: Problems Problem Status Onset Neutropenic fever Acute Pneumonia Acute Sepsis Acute
[2016-07-29 12:21] LABS: RESPPCR RESULT SEE COMMENTS
--- NOTE | 2016-07-29 14:46 | SOAPPROG ---
SOAP Progress Note Assessment/Plan: E&M for Breast Cancer * Febrile Neutropenia with pseudomonas bacteremia: fever has defervesced and ANC has recovered. Thrush has resolved. Continue IV abx for now. Pseudomonas is sensitive to multiple agents. * Met. breast cancer: on weekly taxotere (day 15, cycle 5 was last week) and stable * Respiratory failure with pneumonitis probably due to Human Metapneumovirus: ID believes it is likely the cause of her significant dysphonia. Supportive care only. On dexamethasone. Will check CXR in am. Nurse will d/w respiratory about a mask. Subjective: Daughter with patient. Wondering if she could try a face mask. Patient is stable. No appetite and not eating much. Objective: Vital Signs Temp Pulse Resp BP Pulse Ox 36.6 C 99 18 116/77 92 07/29/16 07:56 07/29/16 11:07 07/29/16 11:07 07/29/16 08:38 07/29/16 11:07 Laboratory Results 07/28/16 05:36 07/28/16 05:36 07/28/16 07/29/16 07/30/16 05:59 05:59 05:59 Intake Total 1590 500 Output Total 2300 1350 500 Balance -710 -850 -500 Microbiology 07/25/16 16:05 Blood Blood Panel (PCR) - Final Pseudomonas Aeruginosa 07/25/16 16:05 Blood Blood Culture - Preliminary 07/25/16 16:05 Blood Pseudomonas Aeruginosa Physical Exam - Physical Exam General Appearance: no apparent distress EENT: pharynx normal Respiratory: crackles Cardiac/Chest: tachycardia Abdomen: non-tender, soft ICD10 Worksheet Patient Problems: Problems Problem Status Onset Neutropenic fever Acute Pneumonia Acute Sepsis Acute
--- NOTE | 2016-07-29 14:56 | HOSPPROG ---
Hospitalist Progress Note Assessment/Plan: DIAGNOSES: # Acute Sepsis # Pseudomonas bacteremia -cefepime started July 26 # Pneumonia with human metapneumovirus and also possibly due to Pseudomonas # acute hypoxic respiratory failure -still requiring vapotherm high flow O2, and still dyspneic at rest # neutropenia secondary to chemotherapy -now with reasonable wbc recovery # metastatic breast cancer oncology consulting and following along # hypovolemic hyponatremia- sodium normal 135 after fluid resuscitation - follow daily # anorexia and resultant severe protein calorie malnutrition -She has used cannabis orals with some success at home in the past and would like something to help stimulate appetite # prophylaxis Lovenox # diet regular # disposition I expect greater than 2 midnights as the patient is presenting neutropenic with sepsis and bacteremia PLANS: -continue current cefepime regimen - respiratory isolation for metapneumovirus - trial of Marinol for appetite stimulation, follow for side effects -continue Mucinex and flutter valve, bronchodilators, steroid -continue supportive oxygen delivery -ambulation as able -continue to follow white blood cell count closely -I have reviewed in detail with Dr Shields today, will review with Dr. Bryson as well SUBJECTIVE: Says breathing feels somewhat better but she still quite short of breath at rest on high-flow Vapotherm Denies chest pain or cough At this point still has no appetite at all in a eating anything says she can't taste foods. States she has use cannabis wheels with some success at home for this OBJECTIVE Vitals reviewed: Remains tachycardic and tachypneic on high-flow Vapotherm oxygen, blood pressure is good, no fever Exam: alert oriented looks a little bit more relaxed than when I saw her on July 25 skin warm dry pale, no rash or jaundice resps remain labored and tachypneic on high-flow O2 lungs very diminished BSs heart regular and rapid abd soft nondistended nontender, bowel sounds present limbs warm, no edema iv site ok Objective: Vital Signs Temp Pulse Resp BP Pulse Ox 36.6 C 99 18 116/77 92 07/29/16 07:56 07/29/16 11:07 07/29/16 11:07 07/29/16 08:38 07/29/16 11:07 Laboratory Results 07/28/16 05:36 07/28/16 05:36 07/28/16 07/29/16 07/30/16 06:59 06:59 06:59 Intake Total 1590 500 Output Total 5160 900 500 Balance -1160 -400 -500 ICD10 Worksheet Patient Problems: Problems Problem Status Onset Neutropenic fever Acute Pneumonia Acute Sepsis Acute
[2016-07-29] MEDS: DRONABINOL 2.5 MG CAP PO SCH ×2 (16:12→20:33)
[2016-07-29] MEDS: MONTELUKAST SODIUM 10 MG TAB PO SCH (18:06)
[2016-07-29] MEDS ORDERED: CALCIUM CARBONATE 500 MG CHEWABLE TAB PO PRN (20:11)
[2016-07-29] MEDS: PRAVASTATIN SODIUM 10 MG TAB PO SCH (20:33)
[2016-07-29] MEDS: LORazepam 0.5 MG TAB PO PRN (20:47)
[2016-07-30] MEDS: CEFEPIME HCL 2 GM in D5W 100 ML IV SCH ×3 (05:33→21:11)
[2016-07-30] MEDS: LEVOTHYROXINE 112 MCG TAB PO SCH (05:33)
[2016-07-30] MEDS: IPRATROPIUM/ALBUTEROL 3 ML DEYVIAL IH SCH ×4 (05:49→20:15)
[2016-07-30 06:05] LABS: ABSOLUTE NRBC COUNT 0.04 10^3/uL (0-0.01); ADD DIFF? YES; ADD MORPH? NO; FRAGMENT RBC FLAG 20 (0-99); HEMOGLOBIN 18.8 g/dL (12.6-16.3); LIPEMIA HEMOLYSIS FLAG 90 (0-99); MEAN CELL HEMOGLOBIN 29.3 pg (27.9-34.1); MEAN CELL HEMOGLOBIN CONCENTR. 34.2 g/dL (32.4-36.7); MEAN CELL VOLUME 85.8 fL (81.5-99.8); MEAN PLATELET VOLUME 10.3 fL (8.7-11.7); NRBC-AUTO% 0.5 % (0.0-0.2); PLATELET CLUMPS FLAG 0 (0-99); PLATELET COUNT 255 10^3/uL (150-400); RED BLOOD CELL COUNT 6.41 10^6/uL (4.18-5.33); RED CELL DISTRIBUTION WIDTH 19.5 % (11.5-15.2)
[2016-07-30 06:20] LABS: ADD SCAN? NO; ATYPICAL LYMPHOCYTE FLAG 120 (0-99); LEFT SHIFT FLG 150 (0-99)
[2016-07-30 07:12] LABS: HYPOCHROMIA 1+; PLATELET ESTIMATE ADEQUATE (ADEQ); POLYCHROMASIA 1+
[2016-07-30] MEDS: PROPRANOLOL HCL 10 MG TAB PO SCH (10:42)
[2016-07-30] MEDS: guaiFENesin 600 MG TAB.ER PO SCH ×2 (10:42→21:11)
[2016-07-30] MEDS: MULTIVITAMINS W-MINERALS 1 EACH TAB PO SCH (10:43)
[2016-07-30] MEDS: DEXAMETHASONE 4 MG TAB PO SCH ×2 (10:43→21:11)
[2016-07-30] MEDS: DRONABINOL 2.5 MG CAP PO SCH ×2 (10:43→21:11)
[2016-07-30] MEDS: FLUoxetine 20 MG CAP PO SCH (10:44)
[2016-07-30] MEDS: FLUCONAZOLE 100 MG TAB PO SCH (10:44)
[2016-07-30] MEDS: SENNOSIDES/DOCUSATE SODIUM TAB PO SCH (10:44)
[2016-07-30] MEDS: ENOXAPARIN 40 MG/0.4 ML SYR SC SCH (10:46)
[2016-07-30] MEDS: POTASSIUM CL 20 MEQ TAB PO SCH (10:47)
[2016-07-30] MEDS: FLUTICASONE NASAL 120 SPRAYS/16 GM MDI EACHNARE SCH ×2 (10:48→21:12)
[2016-07-30] MEDS: UREA 40% CREAM TP SCH (10:50)
--- NOTE | 2016-07-30 11:44 | SOAPPROG ---
SOAP Progress Note Assessment/Plan: Assessment: 1. Metastatic breast cancer 2. Febrile neutropenia due to Taxotere 3. Pseudomonas bacteremia 4. Pneumonia due to virus +/- pseudomonas 5. Hi O2 requirement Plan: - continue abx and other supportive care - hematocrit elevated - may be lab error or hemoconcentration due to diuresis. will check again tomorrow. 07/30/16 11:43 07/30/16 11:43 Subjective: tired. Objective: exam: breathing comfortably diffuse crackles bilaterally in lungs CV RRR no MGR Abd: +BS NT ND Ext: 1+ edema Vital Signs Temp Pulse Resp BP Pulse Ox 36.7 C 106 H 20 117/75 91 L 07/30/16 08:37 07/30/16 10:42 07/30/16 08:37 07/30/16 10:42 07/30/16 08:37 Microbiology 07/29/16 11:48 - Final Sputum, Expectorated Laboratory Results 07/30/16 05:30 07/28/16 05:36 07/29/16 07/30/16 07/31/16 05:59 05:59 05:59 Intake Total 500 1075 Output Total 1350 2100 Balance -850 1026 ICD10 Worksheet Patient Problems: Problems Problem Status Onset Neutropenic fever Acute Pneumonia Acute Sepsis Acute
--- NOTE | 2016-07-30 16:39 | PCMIDPN ---
Assessment/Plan: Assessment: Pseudomonas bacteremia and pneumonia in an immunocompromised host. Patient covered on cefepime. Clinically the patient appears quite ill. She reiterated today that she does not wish to be placed on a breathing machine. She appears to be tiring with respiratory effort. At this point it is clear that the Pseudomonas in her blood is the main driver trainee of her illness. The COPD underlying her acute disease also complicates treatment and recovery. Plan: 1. Continue IV cefepime. 2. Recheck CBC for abnormally increased hematocrit. 3. Follow clinical course. 07/30/16 16:36 07/30/16 16:36 Subjective: Patient resting in her hospital bed in [id number] respiratory distress. Her oxygenation levels fall to the low to mid 80s with coughing or slight movement. No fevers or chills. Patient feels miserable. Objective: Cefepime #4 Vital Signs Temp Pulse Resp BP Pulse Ox 36.3 C 95 20 133/78 H 98 07/30/16 16:27 07/30/16 16:27 07/30/16 16:27 07/30/16 16:27 07/30/16 16:27 Microbiology 07/29/16 11:48 - Final Sputum, Expectorated Laboratory Results 07/30/16 05:30 07/28/16 05:36 07/29/16 07/30/16 07/31/16 05:59 05:59 05:59 Intake Total 500 1075 Output Total 1350 2100 550 Balance -850 -1025 -550 - Physical Exam General Appearance: WD/WN, alert, no apparent distress, toxic, other ( Chronically ill-appearing) Respiratory: respiratory distress (Mild to moderate respiratory distress), crackles, No lungs clear, No normal breath sounds Cardiac/Chest: regular rate, rhythm, No tachycardia Extremities: non-tender, normal inspection Skin: normal color, warm/dry, No rash Neuro/Psych: alert, oriented x 3 ICD10 Worksheet Patient Problems: Problems Problem Status Onset Neutropenic fever Acute Pneumonia Acute Sepsis Acute
--- NOTE | 2016-07-30 16:46 | HOSPPROG ---
Hospitalist Progress Note Assessment/Plan: DIAGNOSES: # Acute Sepsis # Pseudomonas bacteremia -cefepime started July 26 # Pneumonia with human metapneumovirus and also possibly due to Pseudomonas # acute hypoxic respiratory failure -still requiring vapotherm high flow O2, and still dyspneic at rest # neutropenia secondary to chemotherapy -now with reasonable wbc recovery # metastatic breast cancer, oncology consulting and following along -she has stated that she does not want any more chemotherapy or tumor directed therapies # hypovolemic hyponatremia- sodium normal 135 after fluid resuscitation - follow daily # anorexia and resultant severe protein calorie malnutrition -She has used cannabis orals with some success at home in the past and would like something to help stimulate appetite # prophylaxis Lovenox # diet regular # disposition I expect greater than 2 midnights as the patient is presenting neutropenic with sepsis and bacteremia Depending on how she improves over time we should consider further palliative care discussions speech is not ready for this at the moment PLANS: -will give a trial of Lasix to see if this improves her oxygenation or x-ray appearance -continue current cefepime regimen - respiratory isolation for metapneumovirus -continue trial of Marinol for appetite stimulation, follow for side effects -continue Mucinex and flutter valve, bronchodilators, steroid -continue supportive oxygen delivery -activity as able -continue to follow white blood cell count closely -I have reviewed in detail with Dr. Vahe Solis SUBJECTIVE: Continues to feel quite short of breath even on high-flow Vapotherm, no improvement today. Quite exhausted physically and quite weak Appetite OK No chest pain no nausea no chills OBJECTIVE Vitals reviewed: Remains tachycardic on high-flow Vapotherm oxygen, blood pressure is good, no fever Exam: alert oriented looks very tired today skin warm dry pale, no rash or jaundice resps remain mildly labored and tachypneic on high-flow O2 lungs very diminished BSs heart regular and rapid abd soft nondistended nontender, bowel sounds present limbs warm, no edema iv site ok Chest x-ray today, my personal review and interpretation of images: The dense right upper lobe infiltrate is notably improved compared to previous films. However there is more significant diffuse interstitial abnormality particularly in the lower lung castellon. This could potentially be edema or could be potentially viral disease given her known viral infection. There are no other specific abnormal signs to indicate heart failure Objective: Vital Signs Temp Pulse Resp BP Pulse Ox 36.3 C 95 20 133/78 H 98 07/30/16 16:27 07/30/16 16:27 07/30/16 16:27 07/30/16 16:27 07/30/16 16:27 Microbiology 07/29/16 11:48 - Final Sputum, Expectorated Laboratory Results 07/30/16 05:30 07/28/16 05:36 07/29/16 07/30/16 07/31/16 06:59 06:59 06:59 Intake Total 500 1075 Output Total 900 2100 550 Balance -400 -1025 -550 ICD10 Worksheet Patient Problems: Problems Problem Status Onset Neutropenic fever Acute Pneumonia Acute Sepsis Acute
[2016-07-30 17:23] LABS: ABSOLUTE NRBC COUNT 0.06 10^3/uL (0-0.01); ADD DIFF? YES; ADD MORPH? NO; ADD SCAN? YES; ATYPICAL LYMPHOCYTE FLAG 90 (0-99); FRAGMENT RBC FLAG 20 (0-99); HEMATOCRIT 34.7 % (38.0-47.0); HEMOGLOBIN 11.7 g/dL (12.6-16.3); LIPEMIA HEMOLYSIS FLAG 80 (0-99); MEAN CELL HEMOGLOBIN 29.4 pg (27.9-34.1); MEAN CELL HEMOGLOBIN CONCENTR. 33.7 g/dL (32.4-36.7); MEAN CELL VOLUME 87.2 fL (81.5-99.8); MEAN PLATELET VOLUME 9.8 fL (8.7-11.7); NRBC-AUTO% 0.3 % (0.0-0.2); PLATELET CLUMPS FLAG 10 (0-99); PLATELET COUNT 484 10^3/uL (150-400); RED BLOOD CELL COUNT 3.98 10^6/uL (4.18-5.33)
[2016-07-30 17:24] LABS: LEFT SHIFT FLG 140 (0-99)
[2016-07-30 17:50] LABS: SCAN POSITIVE
[2016-07-30 17:55] LABS: PLATELET ESTIMATE INCREASED (ADEQ); TOXIC GRANULATION PRESENT
[2016-07-30] MEDS: LORazepam 0.5 MG TAB PO PRN (21:11)
[2016-07-30] MEDS: PRAVASTATIN SODIUM 10 MG TAB PO SCH (21:11)
[2016-07-30] MEDS: MONTELUKAST SODIUM 10 MG TAB PO SCH (21:12)
[2016-07-31] MEDS: DRONABINOL 2.5 MG CAP PO SCH ×3 (03:57→22:16)
[2016-07-31] MEDS: IPRATROPIUM/ALBUTEROL 3 ML DEYVIAL IH SCH ×4 (06:07→20:56)
[2016-07-31] MEDS: LEVOTHYROXINE 112 MCG TAB PO SCH (06:12)
[2016-07-31] MEDS: CEFEPIME HCL 2 GM in D5W 100 ML IV SCH ×3 (06:13→22:16)
[2016-07-31 06:44] LABS: ABSOLUTE NRBC COUNT 0.06 10^3/uL (0-0.01); ADD DIFF? YES; ADD MORPH? NO; ATYPICAL LYMPHOCYTE FLAG 60 (0-99); FRAGMENT RBC FLAG 20 (0-99); HEMATOCRIT 34.7 % (38.0-47.0); HEMOGLOBIN 11.6 g/dL (12.6-16.3); LIPEMIA HEMOLYSIS FLAG 80 (0-99); MEAN CELL HEMOGLOBIN 28.9 pg (27.9-34.1); MEAN CELL HEMOGLOBIN CONCENTR. 33.4 g/dL (32.4-36.7); MEAN CELL VOLUME 86.3 fL (81.5-99.8); MEAN PLATELET VOLUME 9.6 fL (8.7-11.7); NRBC-AUTO% 0.3 % (0.0-0.2); PLATELET CLUMPS FLAG 0 (0-99); PLATELET COUNT 482 10^3/uL (150-400); RED BLOOD CELL COUNT 4.02 10^6/uL (4.18-5.33); RED CELL DISTRIBUTION WIDTH 18.3 % (11.5-15.2)
[2016-07-31 06:50] LABS: ADD SCAN? NO; LEFT SHIFT FLG 160 (0-99)
[2016-07-31 06:58] LABS: ALANINE AMINOTRANSFERASE 39 IU/L (9-52); ALKALINE PHOSPHATASE 65 IU/L (38-126); ANION GAP 9 mEq/L (8-16); ASPARTATE AMINOTRANSFERASE 28 IU/L (14-46); BILIRUBIN,TOTAL 0.6 mg/dL (0.1-1.4); CALCIUM 8.6 mg/dL (8.5-10.4); CARBON DIOXIDE 23 mEq/l (22-31); CHLORIDE 99 mEq/L (97-110); CREATININE 0.6 mg/dL (0.6-1.0); GLOMERULAR FILTRATION RATE > 60; GLUCOSE 99 mg/dL (70-100); SODIUM 131 mEq/L (134-144); TOTAL PROTEIN 5.6 g/dL (6.3-8.2)
[2016-07-31 07:14] LABS: PLATELET ESTIMATE INCREASED (ADEQ)
[2016-07-31 07:15] LABS: POLYCHROMASIA 1+
[2016-07-31 07:16] LABS: TOXIC GRANULATION PRESENT
[2016-07-31 07:17] LABS: HYPOCHROMIA 1+
[2016-07-31] MEDS: MULTIVITAMINS W-MINERALS 1 EACH TAB PO SCH (09:49)
[2016-07-31] MEDS: FLUCONAZOLE 100 MG TAB PO SCH (09:49)
[2016-07-31] MEDS: SENNOSIDES/DOCUSATE SODIUM TAB PO SCH (09:52)
[2016-07-31] MEDS: guaiFENesin 600 MG TAB.ER PO SCH ×2 (09:52→22:17)
[2016-07-31] MEDS: PROPRANOLOL HCL 10 MG TAB PO SCH (09:52)
[2016-07-31] MEDS: ENOXAPARIN 40 MG/0.4 ML SYR SC SCH (09:53)
[2016-07-31] MEDS: DEXAMETHASONE 4 MG TAB PO SCH ×2 (09:53→22:16)
[2016-07-31] MEDS: FLUoxetine 20 MG CAP PO SCH (09:53)
[2016-07-31] MEDS: FLUTICASONE NASAL 120 SPRAYS/16 GM MDI EACHNARE SCH ×2 (10:08→22:21)
[2016-07-31] MEDS: POTASSIUM CL 20 MEQ TAB PO SCH (10:09)
[2016-07-31] MEDS: UREA 40% CREAM TP SCH (10:12)
--- NOTE | 2016-07-31 10:44 | SOAPPROG ---
SOAP Progress Note Assessment/Plan: Assessment: 1. Metastatic breast cancer 2. Febrile neutropenia due to Taxotere 3. Pseudomonas bacteremia 4. Pneumonia due to virus +/- pseudomonas 5. Hi O2 requirement Plan: - continue abx and other supportive care - pt has said she may not want to continue with chemotherapy. Agree w/ palliative consult. One non-chemo treatment option would be an AI + palbociclib , which is generally well tolerated. She can discuss this further with Dr. Lantigua in the outpatient setting. d/w dr mix. Subjective: tired. coughing up a fair amount of sputum. Objective: exam: chronically ill lungs rhonchi bilaterally CV RRR no MGR Abd: +BS NT ND Ext: no edema Vital Signs Temp Pulse Resp BP Pulse Ox 36.8 C 116 H 16 136/85 H 95 07/31/16 09:45 07/31/16 09:45 07/31/16 09:45 07/31/16 09:45 07/31/16 09:45 Microbiology 07/29/16 11:48 - Final Sputum, Expectorated Laboratory Results 07/31/16 06:18 07/31/16 06:18 07/30/16 07/31/16 08/01/16 05:59 05:59 05:59 Intake Total 1075 600 Output Total 2100 1680 600 Balance -1025 -850 -600 ICD10 Worksheet Patient Problems: Problems Problem Status Onset Neutropenic fever Acute Pneumonia Acute Sepsis Acute
--- NOTE | 2016-07-31 10:53 | HOSPPROG ---
Hospitalist Progress Note Assessment/Plan: DIAGNOSES: # Acute Sepsis # Pseudomonas bacteremia -cefepime started July 26 # Pneumonia with human metapneumovirus and also possibly due to Pseudomonas # acute hypoxic respiratory failure -still requiring vapotherm high flow O2, and still dyspneic at rest # neutropenia secondary to chemotherapy -now with reasonable wbc recovery # oropharyngeal thrush # metastatic breast cancer, oncology consulting and following along -she has stated that she does not want any more chemotherapy or tumor directed therapies # hypovolemic hyponatremia- sodium normal 135 after fluid resuscitation - follow daily # anorexia and resultant severe protein calorie malnutrition -She has used cannabis orals with some success at home in the past, trial of marinol here ongoing # prophylaxis Lovenox # diet regular # disposition I expect greater than 2 midnights as the patient is presenting neutropenic with sepsis and bacteremia PLANS: -I have spoken with her and her daughter today and yesterday about end of life care issues. Again she is clear she wants no furhter chemotherapy, and at this time is interested in hearing more detail about palliative options, so I have ordered palliative care consult. -continue trial of Lasix to see if this improves her oxygenation or x-ray appearance -continue current cefepime regimen - respiratory isolation for metapneumovirus -continue supportive oxygen delivery -continue Mucinex and flutter valve, bronchodilators, steroid -continue trial of Marinol for appetite stimulation, follow for side effects but none so far -activity as able -continue to follow white blood cell count closely -I have reviewed in detail today with Dr Simpson SUBJECTIVE: Feels overall a bit better today with less oral pain No change in dyspnea and weakness No side effects from marinol, perhaps slightly better appetite OBJECTIVE Vitals reviewed: O2 down to 70% 30L on vapotherm otherwise stable w/o fever Exam: alert oriented still looks very tired today skin warm dry pale, no rash or jaundice resps remain mildly labored and tachypneic on high-flow O2 lungs very diminished BSs but no wheeze or rales heart regular and remains rapid abd soft nondistended nontender, bowel sounds present limbs warm, no edema iv site ok Objective: Vital Signs Temp Pulse Resp BP Pulse Ox 36.8 C 116 H 16 136/85 H 95 07/31/16 09:45 07/31/16 09:45 07/31/16 09:45 07/31/16 09:45 07/31/16 09:45 Microbiology 07/29/16 11:48 - Final Sputum, Expectorated Laboratory Results 07/31/16 06:18 07/31/16 06:18 07/30/16 07/31/16 08/01/16 06:59 06:59 06:59 Intake Total 1075 600 Output Total 2100 1450 600 [facility] -1025 -850 -600 ICD10 Worksheet Patient Problems: Problems Problem Status Onset Neutropenic fever Acute Pneumonia Acute Sepsis Acute
--- NOTE | 2016-07-31 11:35 | PCMIDPN ---
Assessment/Plan: Assessment: Pseudomonas bacteremia and pneumonia in an immunocompromised host. Patient covered on cefepime. Clinically the patient seems somewhat improved today. She does not have the respiratory distress about her that she did yesterday. Plan to continue the IV cefepime monotherapy. Oncology notes appreciated and patient is apparently wanting to explore hospice care. Plan: 1. Continue IV cefepime. 2. Follow clinical course. Subjective: Patient is more comfortable today in her hospital bed. She denies any new complaint. No fevers or chills overnight. Objective: Cefepime # 5 Vital Signs Temp Pulse Resp BP Pulse Ox 36.8 C 106 H 16 136/85 H 94 07/31/16 09:45 07/31/16 10:54 07/31/16 10:54 07/31/16 09:45 07/31/16 10:54 Microbiology 07/29/16 11:48 - Final Sputum, Expectorated Laboratory Results 07/31/16 06:18 07/31/16 06:18 07/30/16 07/31/16 08/01/16 05:59 05:59 05:59 Intake Total 1075 600 Output Total 2100 1450 600 Balance -1025 -850 -600 - Physical Exam General Appearance: WD/WN, alert, no apparent distress, toxic (Mildly toxic in appearance) Respiratory: lungs clear, normal breath sounds, No respiratory distress Cardiac/Chest: regular rate, rhythm, No tachycardia Skin: normal color, warm/dry, No rash Neuro/Psych: alert, normal mood/affect, oriented x 3 ICD10 Worksheet Patient Problems: Problems Problem Status Onset Neutropenic fever Acute Pneumonia Acute Sepsis Acute
[2016-07-31] MEDS: MONTELUKAST SODIUM 10 MG TAB PO SCH (18:45)
[2016-07-31] MEDS: PRAVASTATIN SODIUM 10 MG TAB PO SCH (22:16)
[2016-08-01] MEDS: IPRATROPIUM/ALBUTEROL 3 ML DEYVIAL IH SCH ×4 (05:29→23:44)
[2016-08-01] MEDS: CEFEPIME HCL 2 GM in D5W 100 ML IV SCH ×3 (06:17→20:42)
[2016-08-01] MEDS: LEVOTHYROXINE 112 MCG TAB PO SCH (06:17)
--- NOTE | 2016-08-01 09:41 | PCMIDPN ---
Assessment/Plan: Assessment: Pseudomonas bacteremia and pneumonia in an immunocompromised host. Patient covered on cefepime. Clinically the patient seems to show continued improvement. Plan to continue the IV cefepime monotherapy. Oncology notes appreciated and patient is apparently wanting to explore hospice care. Plan: 1. Continue IV cefepime. 2. Follow clinical course. 08/01/16 17:30 Subjective: Patient is resting in her hospital bed. She states she feels better. She only requests chapstick. Objective: Cefepime # 6 Vital Signs Temp Pulse Resp BP Pulse Ox 36.3 C 107 H 14 112/78 91 L 08/01/16 08:16 08/01/16 09:00 08/01/16 09:00 08/01/16 08:16 08/01/16 09:00 Microbiology 07/29/16 11:48 - Final Sputum, Expectorated Laboratory Results 07/31/16 06:18 07/31/16 06:18 07/31/16 08/01/16 08/02/16 05:59 05:59 05:59 Intake Total 600 370 Output Total 1450 1200 Balance -850 -830 - Physical Exam General Appearance: WD/WN, alert, no apparent distress, non-toxic, other (Ill- appearing) Respiratory: lungs clear, normal breath sounds, No respiratory distress Cardiac/Chest: regular rate, rhythm, No tachycardia Skin: normal color, warm/dry, No rash Neuro/Psych: alert, normal mood/affect, oriented x 3 ICD10 Worksheet Patient Problems: Problems Problem Status Onset Neutropenic fever Acute Palliative care encounter Acute Pneumonia Acute Sepsis Acute
[2016-08-01] MEDS: guaiFENesin 600 MG TAB.ER PO SCH ×2 (10:28→20:41)
[2016-08-01] MEDS: PROPRANOLOL HCL 10 MG TAB PO SCH (10:28)
[2016-08-01] MEDS: FLUoxetine 20 MG CAP PO SCH (10:29)
[2016-08-01] MEDS: SENNOSIDES/DOCUSATE SODIUM TAB PO SCH (10:29)
[2016-08-01] MEDS: DEXAMETHASONE 4 MG TAB PO SCH ×2 (10:29→20:41)
[2016-08-01] MEDS: MULTIVITAMINS W-MINERALS 1 EACH TAB PO SCH (10:29)
[2016-08-01] MEDS: POTASSIUM CL 20 MEQ TAB PO SCH (10:29)
[2016-08-01] MEDS: FLUTICASONE NASAL 120 SPRAYS/16 GM MDI EACHNARE SCH ×2 (10:30→20:40)
[2016-08-01] MEDS: DRONABINOL 2.5 MG CAP PO SCH ×2 (10:30→20:41)
[2016-08-01] MEDS: FLUCONAZOLE 100 MG TAB PO SCH (10:30)
[2016-08-01] MEDS: ENOXAPARIN 40 MG/0.4 ML SYR SC SCH (10:40)
--- NOTE | 2016-08-01 10:45 | HOSPPROG ---
Hospitalist Progress Note Assessment/Plan: DIAGNOSES: # Acute Sepsis # Pseudomonas bacteremia -cefepime started July 26 # Pneumonia with human metapneumovirus and also possibly due to Pseudomonas # acute hypoxic respiratory failure -still requiring vapotherm high flow O2, and still dyspneic at rest # neutropenia secondary to chemotherapy -now with reasonable wbc recovery # oropharyngeal thrush # metastatic breast cancer, oncology consulting and following along -she has stated that she does not want any more chemotherapy or tumor directed therapies # hypovolemic hyponatremia- sodium normal 135 after fluid resuscitation - follow daily # anorexia and resultant severe protein calorie malnutrition -She has used cannabis orals with some success at home in the past, trial of marinol here ongoing # prophylaxis Lovenox # diet regular # disposition I expect greater than 2 midnights as the patient is presenting neutropenic with sepsis and bacteremia PLANS: -at the patient's request palliative care consultation will occur today in the early afternoon; Possible revision therapies after that -continue trial of Lasix to see if this improves her oxygenation or x-ray appearance -continue current cefepime regimen - respiratory isolation for metapneumovirus -continue supportive oxygen delivery -continue Mucinex and flutter valve, bronchodilators, steroid -continue trial of Marinol for appetite stimulation, follow for side effects but none so far -activity as able -continue to follow white blood cell count closely -I have reviewed in detail today with Dr Jacob SUBJECTIVE: somewhat less dyspneic today Still minimal appetite despite trial of Marinol, no side effects from that so far OBJECTIVE Vitals reviewed: O2 down to 25 liters/minute with 70% vapotherm some tachycardia persists otherwise stable w/o fever Exam: alert oriented still looks very tired today skin warm dry pale, no rash or jaundice resps remain mildly labored on high-flow O2 lungs very diminished BSs but no wheeze or rales heart regular and remains rapid abd soft nondistended nontender, bowel sounds present limbs warm, no edema iv site ok Objective: Vital Signs Temp Pulse Resp BP Pulse Ox 36.3 C 107 H 14 112/78 91 L 08/01/16 08:16 08/01/16 09:00 08/01/16 09:00 08/01/16 08:16 08/01/16 09:00 Microbiology 07/29/16 11:48 - Final Sputum, Expectorated Laboratory Results 07/31/16 06:18 07/31/16 06:18 07/31/16 08/01/16 08/02/16 06:59 06:59 06:59 Intake Total 600 370 Output Total 1450 1200 Balance -850 -830 ICD10 Worksheet Patient Problems: Problems Problem Status Onset Neutropenic fever Acute Pneumonia Acute Sepsis Acute
[2016-08-01] MEDS: UREA 40% CREAM TP SCH (12:05)
--- NOTE | 2016-08-01 13:20 | SOAPPROG ---
SOAP Progress Note Assessment/Plan: Assessment: Assessment: 1. Metastatic breast cancer 2. Febrile neutropenia due to Taxotere 3. Pseudomonas bacteremia 4. Pneumonia due to virus +/- pseudomonas 5. Hi O2 requirement 6. general deconditioning, inanition Plan: - continue abx and other supportive care - pt has said she may not want to continue with chemotherapy. Agree w/ palliative consult. 08/01/16 13:19 Subjective: very tired Objective: Vital Signs Temp Pulse Resp BP Pulse Ox 97.4 F 107 H 14 112/78 91 L 08/01/16 08:16 08/01/16 09:00 08/01/16 09:00 08/01/16 08:16 08/01/16 09:00 Microbiology 07/29/16 11:48 - Final Sputum, Expectorated Laboratory Results 07/31/16 06:18 07/31/16 06:18 07/31/16 08/01/16 08/02/16 05:59 05:59 05:59 Intake Total 600 370 Output Total 1450 1200 Balance -850 -830 ICD10 Worksheet Patient Problems: Problems Problem Status Onset Neutropenic fever Acute Pneumonia Acute Sepsis Acute
--- NOTE | 2016-08-01 15:39 | PDPCPN ---
Palliative Care Progress Note Assessment/Plan: Referring provider: Dr Hall Reason for consult: Complex medical decision making Symptom control HPI: Liz Crocker is a 60 yo female with PMH COPD, met breast ca, Graves, and remote hx of colon ca admitted to the hospital for SOB. Found to have sepsis 2/2 PNA. Started on antibiotics and anti yeast. required ICU admission for resp failure with high flow oxygen. Improved clinically but remains on high flow oxygen with vapotherm at 25 L. Palliative care consulted for complex medical decision making. Met with Liz and daughter Vivien at the bedside. Liz was able to communicate by writing on a white board. She stated she was"tired" and done with chemo. She feels poorly and wants just to rest. Filled out a MOST form as well as MDPOA. She requested we continue a discussion with her daughter outside of the room. Continued discussion with Vivien about Liz. Vivien shared that her mother has been sick almost her entire life and was told back in 2002 when she was dx with met breast cancer that she only had 6 months to live. She feels like her mom has compensated a lot with her poor health over the years. She has tolerated chemo relatively well but has seen a decline in her function in the past few weeks. She supports her mom's wishes for no more chemo and focus only on comfort measures. We discussed hospice care option with meeting planned for monday with Boris. Spent > 60 minutes in direct face to face contact, counseling, and coordination of care. Assessment: Physical: - Pain: none -tylenol PRN - Dyspnea: severe - on vapotherm - dilaudid PRN - if needed fan can also be helpful - constipation - at risk while on opiates continue bowel regimen with senna and colace. Emotional/psychological: Flat affect. Has support from local family. Advanced Care Planning: Is patient decisional?: Yes Code Status: DNR/DNI POA: daughter Vivien is MDPOA. Plan: Meeting with hospice for possible inpatient care. Subjective: I'm tired Objective: Social History: daughter and son involved. [place] to [place]. Mother is alive in [place]. Medication list reviewed ROS: General: fatigue, weakness ENT: negative Resp: dyspnea, cough GI: poor appetite : negative MS: negative Skin: negative Neuro: negative Psych: flat Functional assessment: PPS: 40% Functional status: dependent on ADLs, IADLs Vital Signs Temp Pulse Resp BP Pulse Ox 36.3 C 107 H 14 112/78 91 L 08/01/16 08:16 08/01/16 09:00 08/01/16 09:00 08/01/16 08:16 08/01/16 09:00 Microbiology 07/27/16 12:20 Blood Culture - Final Blood 07/27/16 12:05 Blood Culture - Final Blood 07/29/16 11:48 - Final Sputum, Expectorated Sputum Culture - Final Meghana Albicans Pseudomonas Aeruginosa Laboratory Results 07/31/16 06:18 07/31/16 06:18 07/31/16 08/01/16 08/02/16 05:59 05:59 05:59 Intake Total 600 370 Output Total 1450 1200 Balance -850 -830 Physical Exam - Physical Exam General Appearance: alert, no apparent distress Respiratory: decreased breath sounds, No respiratory distress, No accessory muscle use Skin: normal color, warm/dry Extremities: pedal edema Neuro/Psych: alert, oriented x 3 ICD10 Worksheet Patient Problems: Problems Problem Status Onset Neutropenic fever Acute Palliative care encounter Acute Pneumonia Acute Sepsis Acute - ICD10 Problem Qualifiers (1) Palliative care encounter
[2016-08-01] MEDS: MONTELUKAST SODIUM 10 MG TAB PO SCH (17:42)
[2016-08-01] MEDS: LORazepam 0.5 MG TAB PO PRN (17:43)
[2016-08-01] MEDS: PRAVASTATIN SODIUM 10 MG TAB PO SCH (20:41)
[2016-08-02] MEDS: LEVOTHYROXINE 112 MCG TAB PO SCH (04:52)
[2016-08-02] MEDS: CEFEPIME HCL 2 GM in D5W 100 ML IV SCH ×3 (04:53→21:19)
[2016-08-02] MEDS: IPRATROPIUM/ALBUTEROL 3 ML DEYVIAL IH SCH ×4 (05:07→22:39)
[2016-08-02] MEDS: POTASSIUM CL 20 MEQ TAB PO SCH (10:19)
[2016-08-02] MEDS: DEXAMETHASONE 4 MG TAB PO SCH ×2 (10:20→21:19)
[2016-08-02] MEDS: FLUCONAZOLE 100 MG TAB PO SCH (10:21)
[2016-08-02] MEDS: FLUoxetine 20 MG CAP PO SCH (10:21)
[2016-08-02] MEDS: MULTIVITAMINS W-MINERALS 1 EACH TAB PO SCH (10:21)
[2016-08-02] MEDS: DRONABINOL 2.5 MG CAP PO SCH ×2 (10:21→21:19)
[2016-08-02] MEDS: guaiFENesin 600 MG TAB.ER PO SCH ×2 (10:21→21:19)
[2016-08-02] MEDS: ENOXAPARIN 40 MG/0.4 ML SYR SC SCH (10:21)
[2016-08-02] MEDS: SENNOSIDES/DOCUSATE SODIUM TAB PO SCH (10:21)
[2016-08-02] MEDS: PROPRANOLOL HCL 10 MG TAB PO SCH (10:21)
[2016-08-02] MEDS: FLUTICASONE NASAL 120 SPRAYS/16 GM MDI EACHNARE SCH ×2 (10:22→21:21)
[2016-08-02] MEDS: UREA 40% CREAM TP SCH (10:23)
--- NOTE | 2016-08-02 10:58 | SOAPPROG ---
SOAP Progress Note Assessment/Plan: Assessment: Assessment: 1. Metastatic breast cancer 2. Febrile neutropenia due to Taxotere 3. Pseudomonas bacteremia 4. Pneumonia due to virus +/- pseudomonas 5. Hi O2 requirement 6. general deconditioning, inanition Plan: - continue abx and other supportive care - pt has said she may not want to continue with chemotherapy, possibility of inpatient hospice is a consideration. She is actually feeling better today 08/01/16 13:19 08/02/16 10:55 Subjective: Feels better, very [facility] Objective: Vital Signs Temp Pulse Resp BP Pulse Ox 97.7 F 110 H 20 120/74 92 08/02/16 04:34 08/02/16 05:07 08/02/16 05:07 08/02/16 04:34 08/02/16 05:07 Microbiology 07/27/16 12:20 Blood Culture - Final Blood 07/27/16 12:05 Blood Culture - Final Blood 07/29/16 11:48 - Final Sputum, Expectorated Sputum Culture - Final Meghana Albicans Pseudomonas Aeruginosa Laboratory Results 07/31/16 06:18 07/31/16 06:18 08/01/16 08/02/16 08/03/16 05:59 05:59 05:59 Intake Total 370 925 100 Output Total 1200 1775 Balance -830 -850 100 ICD10 Worksheet Patient Problems: Problems Problem Status Onset Neutropenic fever Acute Palliative care encounter Acute Pneumonia Acute Sepsis Acute
--- NOTE | 2016-08-02 13:03 | HOSPPROG ---
Hospitalist Progress Note Assessment/Plan: # neutropenic fever - currently on cefepime, no longer neutropenic # pneumonia, possibly pseudomonal vs viral - cefepime # sepsis # pseudomonal bacteremia - cefepime per ID # acute hypoxic resp failure # metastatic breast cancer - does not want more chemotherapy # anorexia, severe protein calorie malnutrition # hypovolemic hyponatremia # lovenox # goals of care - likely to inpatient hospice tomorrow; she met with Boris today ## chart reviewed CXR personally reviewed Subjective: no complaints to me - we communicated by writing on white board Objective: Vital Signs Temp Pulse Resp BP Pulse Ox 36.5 C 107 H 20 120/74 92 08/02/16 04:34 08/02/16 11:10 08/02/16 11:10 08/02/16 04:34 08/02/16 11:10 Microbiology 07/27/16 12:20 Blood Culture - Final Blood 07/27/16 12:05 Blood Culture - Final Blood 07/29/16 11:48 - Final Sputum, Expectorated Sputum Culture - Final Meghana Albicans Pseudomonas Aeruginosa Laboratory Results 07/31/16 06:18 07/31/16 06:18 08/01/16 08/02/16 08/03/16 05:59 05:59 05:59 Intake Total 370 925 100 Output Total 1200 1775 Balance -830 -850 100 - Physical Exam Constitutional: no apparent distress, appears nourished Cardiovascular: regular rate and rhythym, no murmur, rub, or gallop, systolic murmur Respiratory: no respiratory distress, no rales or rhonchi, clear to auscultation Gastrointestinal: normoactive bowel sounds, soft, non-tender abdomen, no palpable masses ICD10 Worksheet Patient Problems: Problems Problem Status Onset Neutropenic fever Acute Pneumonia Acute Sepsis Acute Palliative care encounter Acute
--- NOTE | 2016-08-02 13:35 | PCMIDPN ---
Assessment/Plan: Assessment/Plan: 1. Pseudomonas bacteremia and pneumonia in I.C. host: -f/u blood cx from 07/27 ngtd -Currently on Cefepime. -Port in place 2. Human Metapneumovirus pneumonia: - on droplet precautions. 3. Febrile neutrapenia: resolved. meds cefepime 2g q8- fluconazole 100mg daily Subjective: Afebrile. feels better overall. less sob. no cough or sputum production. denies abd pain. Objective: Vital Signs Temp Pulse Resp BP Pulse Ox 36.5 C 107 H 20 120/74 92 08/02/16 04:34 08/02/16 11:10 08/02/16 11:10 08/02/16 04:34 08/02/16 11:10 Microbiology 07/27/16 12:20 Blood Culture - Final Blood 07/27/16 12:05 Blood Culture - Final Blood 07/29/16 11:48 - Final Sputum, Expectorated Sputum Culture - Final Meghana Albicans Pseudomonas Aeruginosa Laboratory Results 07/31/16 06:18 07/31/16 06:18 08/01/16 08/02/16 08/03/16 05:59 05:59 05:59 Intake Total 370 925 100 Output Total 1200 1775 Balance -830 -850 100 - Physical Exam General Appearance: alert, other (weak) Respiratory: coarse breath sounds Cardiac/Chest: regular rate, rhythm Extremities: No swelling Abdomen: normal bowel sounds, non-tender, soft, No distended Skin: No erythema ICD10 Worksheet Patient Problems: Problems Problem Status Onset Neutropenic fever Acute Palliative care encounter Acute Pneumonia Acute Sepsis Acute
[2016-08-02] MEDS: MONTELUKAST SODIUM 10 MG TAB PO SCH (17:14)
[2016-08-02] MEDS ORDERED: CANN-EASE 2 GM TUBE TP PRN (18:05)
[2016-08-02] MEDS: PRAVASTATIN SODIUM 10 MG TAB PO SCH (21:19)
[2016-08-02] MEDS: ZOLPIDEM TARTRATE 5 MG TAB PO PRN (21:38)
[2016-08-02] MEDS: HYDROCODONE/APAP 5/325 TAB PO PRN (21:38)
[2016-08-03] MEDS: IPRATROPIUM/ALBUTEROL 3 ML DEYVIAL IH SCH ×2 (04:49→11:36)
[2016-08-03] MEDS: CEFEPIME HCL 2 GM in D5W 100 ML IV SCH (05:54)
[2016-08-03] MEDS: LEVOTHYROXINE 112 MCG TAB PO SCH (05:54)
[2016-08-03 08:31] VITALS: PULSE 113; RESP 20; TEMP 97.5; O2SAT 100
[2016-08-03] MEDS: FLUCONAZOLE 100 MG TAB PO SCH (09:00)
[2016-08-03] MEDS: MULTIVITAMINS W-MINERALS 1 EACH TAB PO SCH (09:00)
[2016-08-03] MEDS: DEXAMETHASONE 4 MG TAB PO SCH (09:00)
[2016-08-03] MEDS: guaiFENesin 600 MG TAB.ER PO SCH (09:00)
[2016-08-03] MEDS: ENOXAPARIN 40 MG/0.4 ML SYR SC SCH (09:00)
[2016-08-03] MEDS: FLUoxetine 20 MG CAP PO SCH (09:00)
[2016-08-03] MEDS: SENNOSIDES/DOCUSATE SODIUM TAB PO SCH (09:00)
[2016-08-03] MEDS: POTASSIUM CL 20 MEQ TAB PO SCH (09:01)
[2016-08-03] MEDS: DRONABINOL 2.5 MG CAP PO SCH (09:01)
[2016-08-03] MEDS: PROPRANOLOL HCL 10 MG TAB PO SCH (09:02)
[2016-08-03] MEDS: FLUTICASONE NASAL 120 SPRAYS/16 GM MDI EACHNARE SCH (09:02)
[2016-08-03 09:03] VITALS: BP 136/96
[2016-08-03] MEDS: UREA 40% CREAM TP SCH (09:03)
--- NOTE | 2016-08-03 10:52 | PDIAF ---
- Diagnosis Diagnosis: Metastatic Breast Cancer Code Status: Do Not Resuscitate - Medication Management Discharge Medications: Medications to Continue on Transfer Dexamethasone [Decadron 4 MG (*)] 8 mg PO BID 04/07/16 [Last Taken Unknown] FLUoxetine [Prozac 20 MG (*)] 40 mg PO DAILY 04/07/16 [Last Taken Unknown] Fluticasone Nasal [Flonase Nasal [place]] 1 sprays NASAL BID 04/07/16 [Last Taken Unknown] Hydrocodone/Acetaminophen [[place] 5/325 (*)] 1 each PO Q4HRS PRN 04/07/16 [Last Taken Unknown] LORazepam [Ativan (*)] 0.5 - 1 mg PO HS PRN 04/07/16 [Last Taken Unknown] Docusate Sodium [Colace 100 MG (*)] 100 mg PO BID PRN 07/25/16 [Last Taken Unknown] Levothyroxine [Synthroid 112 mcg (*)] 112 mcg PO DAILY06 07/25/16 [Last Taken Unknown] Prochlorperazine Maleate [Compazine 10mg (*)] 10 mg PO Q6HRS PRN 07/25/16 [Last Taken Unknown] Sennosides/Docusate Sodium [Senna-S Tablet] 1 each PO DAILY 07/25/16 [Last Taken Unknown] Albuterol [Proventil Neb] 3 ml IH Q2HRS PRN #0 deyvial 08/03/16 [Last Taken Unknown] Dronabinol [Marinol 2.5 MG (*)] 2.5 mg PO BID cap 08/03/16 [Last Taken Unknown] Discharge Medications: Refer to the Discharge Home Medication list for PRN reason. - Orders Services needed: Registered Nurse, Certified Central Office Supervisor - Follow Up Care Current Providers and Referrals: Manish Lantigua MD [Medical Doctor] - As per Instructions
--- NOTE | 2016-08-03 10:59 | PDIAF ---
- Diagnosis Diagnosis: Metastatic Breast Cancer Code Status: Do Not Resuscitate - Medication Management Discharge Medications: Medications to Continue on Transfer Dexamethasone [Decadron 4 MG (*)] 8 mg PO BID 04/07/16 [Last Taken Unknown] FLUoxetine [Prozac 20 MG (*)] 40 mg PO DAILY 04/07/16 [Last Taken Unknown] Fluticasone Nasal [Flonase Nasal [place]] 1 sprays NASAL BID 04/07/16 [Last Taken Unknown] Hydrocodone/Acetaminophen [[place] 5/325 (*)] 1 each PO Q4HRS PRN 04/07/16 [Last Taken Unknown] LORazepam [Ativan (*)] 0.5 - 1 mg PO HS PRN 04/07/16 [Last Taken Unknown] Docusate Sodium [Colace 100 MG (*)] 100 mg PO BID PRN 07/25/16 [Last Taken Unknown] Levothyroxine [Synthroid 112 mcg (*)] 112 mcg PO DAILY06 07/25/16 [Last Taken Unknown] Prochlorperazine Maleate [Compazine 10mg (*)] 10 mg PO Q6HRS PRN 07/25/16 [Last Taken Unknown] Sennosides/Docusate Sodium [Senna-S Tablet] 1 each PO DAILY 07/25/16 [Last Taken Unknown] Albuterol [Proventil Neb] 3 ml IH Q2HRS PRN #0 deyvial 08/03/16 [Last Taken Unknown] Dronabinol [Marinol 2.5 MG (*)] 2.5 mg PO BID cap 08/03/16 [Last Taken Unknown] morphINE [Roxanol 10 mg/0.5 ml oral soln (*)] 5 - 10 mg PO Q2 #1 btl 08/03/16 [ Last Taken Unknown] Discharge Medications: Refer to the Discharge Home Medication list for PRN reason. - Orders Services needed: Registered Nurse, Certified Budget Report Clerk - Follow Up Care Current Providers and Referrals: Manish Lantigua MD [Medical Doctor] - As per Instructions
--- NOTE | 2016-08-03 12:13 | GDS ---
[f rep st] DISCHARGE SUMMARY ALL DIAGNOSES: 1. Sepsis. 2. Pseudomonal bacteremia. 3. Human metapneumovirus pneumonia. 4. Possible Pseudomonas pneumonia. 5. Acute hypoxic respiratory failure. 6. Neutropenic fever. 7. Metastatic breast cancer. 8. Oropharyngeal thrush. 9. Severe protein-calorie malnutrition. 10. Hyponatremia. HOSPITAL COURSE: This is a 60-year-old female who presented with weakness and shortness of breath. She had received Taxotere, was neutropenic. She had a fever on admission. Workup revealed pneumonia. One blood culture grew out Pseudomonas. Respiratory viral PCR showed human metapneumovirus. She was seen by both Oncology, as well as Infectious Disease. She has been treated with cefepime for pseudo monal bacteremia, as well as pneumonia. She saw Palliative Care on August 01, 2016. She expressed morena t she would not want anymore chemotherapy. Therefore, hospice was consulted. [facility] accepts he r to inpatient hospice care facility given her extremely high oxygen needs at this point. She will b e discharged to [facility] today. BILLING: I spent more than 30 minutes on the day of discharge, coordinating care. /[id number]/MODL
[2016-08-03] MEDS: HYDROCODONE/APAP 5/325 TAB PO PRN (12:29)
== END 2016-08-03 13:04 | disposition hospice, home (50) | DRG 871 ==
LOC: F1N 17:45
PROVIDERS: ADMIT Internal Medicine; ATTEND Internal Medicine
DX: A41.89 Other specified sepsis (principal); J15.1 Pneumonia due to Pseudomonas; J96.01 Acute respiratory failure with hypoxia; E87.1 Hypo-osmolality and hyponatremia; D70.9 Neutropenia, unspecified; T45.1X5A Adverse effect of antineoplastic and immunosuppressive drugs, initial encounter; B37.0 Candidal stomatitis; E43 Unspecified severe protein-calorie malnutrition; Z51.5 Encounter for palliative care; C50.919 Malignant neoplasm of unspecified site of unspecified female breast; C79.51 Secondary malignant neoplasm of bone; Z85.048 Personal history of other malignant neoplasm of rectum, rectosigmoid junction, and anus; Z93.3 Colostomy status; J44.9 Chronic obstructive pulmonary disease, unspecified; E05.90 Thyrotoxicosis, unspecified without thyrotoxic crisis or storm; Z87.891 Personal history of nicotine dependence
CPT/HCPCS: 96365; 97165-GO; G8987-GO-CI; G8988-GO-CI; J0692; J1650; J3370